=== PATIENT | male | born 1950 | race Caucasian/White ===

== ENCOUNTER 2018-06-29 15:34 | Observation (INO) ==
[2018-06-29 15:46] LABS: Hematocrit 47.5 % (37.5-50.1); Hemoglobin 14.1 g/dL (12.9-16.9); Mean Corpuscular HGB Conc 29.7 g/dL (31.6-35.5); Mean Corpuscular Hemoglobin 21.7 pg (28.0-33.3); Mean Corpuscular Volume 73.2 fL (83.0-100.0); Mean Platelet Volume 8.4 fL (9.4-12.4); Platelet Count 322 K/mcL (140-400); Red Blood Count 6.49 M/mcL (4.19-5.50); Red Cell Distribution Width 20.8 % (11.5-14.5)
[2018-06-29 15:53] LABS: INR 1.1; Prothrombin Time 12.6 Seconds (9.4-12.1)
[2018-06-29 16:01] LABS: BUN/Creatinine Ratio 22 (6-26); Blood Urea Nitrogen 28 mg/dL (8-23); Calcium 8.9 mg/dL (8.6-10.3); Carbon Dioxide 34 mEq/L (23-29); Chloride 96 mEq/L (98-107); Glucose 253 mg/dL (70-105); Osmolality,Calculated 294 (280-300); Potassium 3.2 mEq/L (3.5-5.1); Sodium 135 mEq/L (136-145); eGFR For Non-African Americans 58 (> 60)
[2018-06-29 16:08] LABS: Troponin I < 0.03 ng/mL (< 0.04)
--- NOTE | 2018-06-29 16:11 | Emergency Department Note ---
Disposition Clinical Impression: Cerebrovascular accident Qualifiers: CVA mechanism: unspecified Qualified Code(s): I63.9 - Cerebral infarction, unspecified Disposition: Admitted As Inpatient Condition: Fair Forms: ED Satisfaction Letter Time of Disposition: 16:48 Neuro HPI - General Chief Complaint: ED Neuro Symptoms/Deficit Stated Complaint: stroke Time Seen by Provider: 06/29/18 15:35 Source: patient Limitations: no limitations Nursing Notes Reviewed: Yes Vital Signs Reviewed: Yes - History of Present Illness HPI Narrative: Patient is a 67-year-old male presenting with AMS. Patient with history of COPD, CAD, hypertension, hyperlipidemia, fibromyalgia, diabetes and a recent diagnosis 1 week ago of [place] palsy, on the right. Patient states that approximate one week ago he began to have right sided facial droop, he was carlee gnosed with Urias's palsy. He was placed on steroids for one week and just finish this course. Patient states however last night he began to have progressive symptoms with increased right-sided facial droop with slurred speech. Last known well is sometime last night. Patient states that he also h as numbness and tingling throughout the rest of his body. Patient denies any chest pain, shortness of breath, recent fevers or chills no abdominal pain, nausea or vomiting. - Related Data Home Medications: Home Medications Medication Instructions Recorded Confirmed Paroxetine HCl [Paxil] 40 mg PO DAILY 03/11/18 03/11/18 Previous Rx's Medication Instructions Recorded Furosemide [Lasix] 20 mg PO DAILY #5 tablet 10/01/16 Allergies/Adverse Reactions: Allergies Allergy/AdvReac Type Severity Reaction Status Date / Time Penicillins [PCN] Allergy See Verified 03/11/18 15:25 Comments simvastatin AdvReac Muscle Pain Verified 03/11/18 15:25 All systems ED: reviewed and negative except as stated. Review of Systems: As Per HPI Constitutional: Reports: weakness. Denies: fever, chills, weight change Eyes: Denies: vision change ENT ED: Denies: ear pain, throat pain, dental pain, hearing loss, epistaxis, congestion, dysphagia Cardiovascular: Denies: chest pain, palpitations, edema Respiratory: Denies: cough, dyspnea, wheezes, sputum production Gastrointestinal: Denies: abdominal pain, nausea, vomiting Genitourinary: Denies: urgency, dysuria, frequency Musculoskeletal: Denies: back pain Integumentary: Denies: rash Neurological: Reports: weakness, numbness, confusion. Denies: headache Psychiatric: Denies: anxiety Endocrine: Denies: fatigue Hematological/Lymphatic: Denies: easy bleeding Past Medical History - Past Medical History Attestation: Yes The following information was validated with the patient. Source: patient Medical history: Reports: COPD, DVT, diabetes, fibromyalgia, hyperlipidemia, hypertension, migraine, myocardial infarction, pulmonary embolus Psychiatric history: Reports: anxiety, depression - Social History Smoking Status: Former smoker Smokeless Tobacco Status: No Alcohol use: Reports: rarely Drug use: Reports: none Physical Exam - General Limitations: no limitations General appearance: in no apparent distress - Head Head exam: atraumatic, normocephalic, normal inspection - Eye Eye exam: Present: normal appearance, PERRL, EOMI - ENT ENT exam: normal exam, mucous membranes moist - Neck Neck exam: Present: normal inspection, full ROM, trachea midline - Chest Chest inspection: Present: normal inspection, symmetric chest wall rise - Respiratory Respiratory exam: Present: normal lung sounds bilaterally - Cardiovascular Cardiovascular exam: Present: regular rate, normal rhythm, normal heart sounds - Abdominal Exam Abdominal exam: Present: soft, Non-Tender. Absent: tenderness, distention, guar ding, rebound, rigidity - Extremities Exam Extremities exam: Present: normal inspection, full ROM. Absent: tenderness, pedal edema - Back Exam Back exam: Present: normal inspection, full ROM. Absent: tenderness - Neurological Exam Neurological exam: Present: alert, oriented X3 - Expanded Neurological Exam Patient oriented to: Present: person, place, time Speech: Present: fluid speech Cranial nerves: EOM function (II, III, IV, ): Normal, facial sensation (V): Normal, facial palsy (VII): Abnormal Right, spinal accessory function (XI): Normal, tongue deviation (XII): Normal Cerebellar function: finger to nose: Normal, heel to tavera: Normal Motor strength - LUE: 5/5 Motor strength - RUE: 5/5 Motor strength - LLE: 5/5 Motor strength - RLE: 5/5 Upper motor neuron exam: camron neglect: Absent bilaterally, pronator drift: Absent bilaterally Sensory exam upper extremity: light touch: Normal Sensory exam lower extremity: light touch: Normal Coma Scale Eye Opening: Spontaneous Coma Scale Motor Response: Obeys Commands Coma Scale Verbal Response: Confused Coma Scale Total: 14 - Psychiatric Psychiatric exam: Present: normal affect, normal mood - Skin Skin exam: Present: warm, dry, intact, normal color. Absent: rash Course - Reevaluation(s) Reevaluation #1: On arrival 1540, patient had obvious right-sided facial droop and slurring of speech, stroke alert was called. At 1607, I was in the room while [facility] neurology was assessing the patient at bedside, , states that this appears to be Urias's palsy, she does note that it would be beneficial for the patient to have an MRI for further assessment of the auditory canal. At 1608, stroke alert was canceled. Vital Signs Temperature 99.2 F 06/29/18 15:40 Pulse Rate 89 06/29/18 15:40 Respiratory Rate 16 06/29/18 15:40 Blood Pressure 155/108 06/29/18 15:40 O2 Sat by Pulse Oximetry 97 06/29/18 15:40 Temperature 99.2 F 06/29/18 15:40 Pulse Rate 85 06/29/18 15:55 Respiratory Rate 16 06/29/18 15:55 Blood Pressure 130/74 06/29/18 15:55 O2 Sat by Pulse Oximetry 96 06/29/18 15:55 Oxygen Delivery Oxygen Delivery Room Air Neuro Symptoms/Deficit - MDM Narrative Medical decision making narrative: Patient is a 67-year-old male with concern for neuro deficits. Patient recently diagnosed with Urias's palsy of the right side of his face. On examination, obvious right-sided facial droop and upper right-sided facial changes, otherwise unremarkable. GCS of 14, NIH of 5. I did speak with [facility] at 1607, feels as though this is most likely progression of Urias's palsy, despite prednisone therapy. Recommended the patient be admitted with neurology consult, for further MRI testing as well as closer neurological testing for possible GBS. CT of the head shows no intracranial changes, slight leukocytosis, in setting of steroids appears appropriate, otherwise unremarkable. Patient was started on maintenance fluids. Patient will be admitted at this time. Patient remained stable in the ER, he is agreeable to admission. - Medical Records Medical records reviewed: Yes I reviewed the patient's medical records. - Lab Data Lab results reviewed: Yes I reviewed the patient's lab results. Result diagrams: 06/29/18 15:37 06/29/18 15:37 Lab Results 06/29/18 06/29/18 06/29/18 Range/Units 15:37 15:37 15:37 WBC 15.0 H (4.3-11.1) K/mcL RBC 6.49 H (4.19-5.50) M/mcL Hgb 14.1 (12.9-16.9) g/dL Hct 47.5 (37.5-50.1) % MCV 73.2 L (83.0-100.0) fL MCH 21.7 L (28.0-33.3) pg MCHC 29.7 L (31.6-35.5) g/dL RDW 20.8 H (11.5-14.5) % Plt Count 322 (140-400) K/mcL MPV 8.4 L (9.4-12.4) fL PT 12.6 H (9.4-12.1) Seconds INR 1.1 APTT 26.0 (26.0-36.0) Seconds Sodium 135 L (136-145) mEq/L Potassium 3.2 L (3.5-5.1) mEq/L Chloride 96 L (98-107) mEq/L Carbon Dioxide 34 H (23-29) mEq/L BUN 28 H (8-23) mg/dL Creatinine 1.25 (0.70-1.30) mg/dL Est GFR ( Amer) > 60 (> 60) Est GFR (Non-Af Amer) 58 L (> 60) BUN/Creatinine Ratio 22 (6-26) Glucose 253 H (70-105) mg/dL Calculated Osmolality 294 (280-300) Calcium 8.9 (8.6-10.3) mg/dL Troponin I < 0.03 (< 0.04) ng/mL - Radiology Data Radiology results reviewed: Yes I reviewed the patient's radiology results. Head CT 06/29/18 15:35 IMPRESSION: No acute intracranial abnormality. Findings were discussed with Dr. Jha on 06/29/2018 at 4:02 p.m. D/ / 06/29/2018 16:06:56 Annie Herrera MD / [facility] Interpreting Provider: Annie Herrera MD - EKG Data EKG attestation: Yes I reviewed and interpreted this EKG. EKG results narrative: EKG performed at 1549 with a ventricular rate of 89, regular rhythm, borderline left axis, no ST segment elevation, depression, does appear to have left atrial enlargement. NIH Stroke Scale - Level of Consciousness LOC: Drowsy, but arousable - LOC Questions LOC Questions: Answers both correctly - LOC Commands LOC Commands: Performs both correctly - Best Gaze Best Gaze: Normal - Visual Visual: No visual loss - Facial Palsy Facial Palsy: Complete absence of movement in upper and lower face - Motor Arms Motor Arm-Left: No drift for 10 seconds Motor Arm-Right: No drift for 10 seconds - Motor Legs Motor Leg-Left: No drift for 5 seconds Motor Leg-Right: No drift for 5 seconds - Limb Ataxia Limb Ataxia: Absent of affected limb too weak to perform exam - Sensory Sensory: Normal - Best Language Best Language: No aphasia - Dysarthria Dysarthria: Mild, slurs some words - Extinction and Inattention Extinction and Inattention: Normal - NIHSS Total Score NIHSS Total Score: 5 TPA Checklist - LKW: 3-4.5 hrs Add. Warnings/Precautions Patient/family understanding: The patient/family members have been counseled and understood the risk, benefit, and alternatives of treatment. Jerel.Bria - [place] Situation: Demographics, MOA Background: Presenting Complaint, Relevant PMH, Meds, & Allergies Assessment: Vital Signs, Course and respsone to treatment, Exam Concerns, Patient/Family Expectation, Pertinant Lab Results, Outstanding Labs Recommendation: Barrier(s) to disposition, Recommendation based on pending studies, treatments, or consults S.B.AMartin Report Given to: Dr. Pierre Hannah Repor Time: 16:50 (accepted)
--- NOTE | 2018-06-29 16:25 | Emergency Department Note ---
Disposition Clinical Impression: Cerebrovascular accident Qualifiers: CVA mechanism: unspecified Qualified Code(s): I63.9 - Cerebral infarction, unspecified Disposition: Admitted As Inpatient Referrals: NONE,PCP [Primary Care Provider] - Forms: ED Satisfaction Letter General Adult HPI - General Chief complaint: ED Neuro Symptoms/Deficit Stated complaint: stroke Time Seen by Provider: 06/29/18 15:35 Source: patient Limitations: no limitations Nursing Notes Reviewed: Yes Vital Signs Reviewed: Yes - History of Present Illness HPI Narrative: Attestation note: Patient was seen with the emergency medicine resident/nurse practitioner/physician assistant auditor/transitional resident/medical student: Dr. Clary Mckeon I have personally performed a face to face evaluation on this patient. I have reviewed and agree with history and physical examination patient management and disposition. Briefly the salient points of the case are as follows: 67-year-old male History of CVA briefly diagnosed with Urias's palsy comes in with facial hemiparesis on the left dysarthria and some cognitive dysfunction. NIH of 5 last known well was yesterday stroke alert was called patient went head CT noncontrast read by radiology as no acute process stroke alert robot from the neurologist at the [facility] evaluated the patient and stated that TPA was not an option that we should do MR at Christmas and admit with neurologic consultation. Patient is agreeable to this. Provided 45 minutes critical care service this patient. Patient is being admitted for TIA versus CVA and pre- existing bells palsy. Pain Scale: 0 - Related Data Home Medications Medication Instructions Recorded Confirmed Paroxetine HCl [Paxil] 40 mg PO DAILY 03/11/18 03/11/18 Previous Rx's Medication Instructions Recorded Furosemide [Lasix] 20 mg PO DAILY #5 tablet 10/01/16 Allergies Allergy/AdvReac Type Severity Reaction Status Date / Time Penicillins [PCN] Allergy See Verified 03/11/18 15:25 Comments simvastatin AdvReac Muscle Pain Verified 03/11/18 15:25 Past Medical History - Past Medical History Medical history: Reports: COPD, DVT, diabetes, fibromyalgia, hyperlipidemia, hypertension, migraine, myocardial infarction, pulmonary embolus Psychiatric history: Reports: anxiety, depression - Social History Smoking Status: Former smoker Smokeless Tobacco Status: No Alcohol use: Reports: rarely Drug use: Reports: none Physical Exam - General Limitations: no limitations General appearance: in no apparent distress Course Vital Signs Temperature 99.2 F 02/07/19 15:40 Pulse Rate 89 06/29/18 15:40 Respiratory Rate 16 06/29/18 15:40 Blood Pressure 155/108 06/29/18 15:40 O2 Sat by Pulse Oximetry 97 06/29/18 15:40 Temperature 99.2 F 06/29/18 15:40 Pulse Rate 85 06/29/18 15:55 Respiratory Rate 16 06/29/18 15:55 Blood Pressure 130/74 06/29/18 15:55 O2 Sat by Pulse Oximetry 96 06/29/18 15:55 Oxygen Delivery Oxygen Delivery Room Air Medical Decision Making - Lab Data Result diagrams: 06/29/18 15:37 06/29/18 15:37 Lab Results 06/29/18 06/29/18 06/29/18 Range/Units 15:37 15:37 15:37 WBC 15.0 H (4.3-11.1) K/mcL RBC 6.49 H (4.19-5.50) M/mcL Hgb 14.1 (12.9-16.9) g/dL Hct 47.5 (37.5-50.1) % MCV 73.2 L (83.0-100.0) fL MCH 21.7 L (28.0-33.3) pg MCHC 29.7 L (31.6-35.5) g/dL RDW 20.8 H (11.5-14.5) % Plt Count 322 (140-400) K/mcL MPV 8.4 L (9.4-12.4) fL PT 12.6 H (9.4-12.1) Seconds INR 1.1 APTT 26.0 (26.0-36.0) Seconds Sodium 135 L (136-145) mEq/L Potassium 3.2 L (3.5-5.1) mEq/L Chloride 96 L (98-107) mEq/L Carbon Dioxide 34 H (23-29) mEq/L BUN 28 H (8-23) mg/dL Creatinine 1.25 (0.70-1.30) mg/dL Est GFR ( Amer) > 60 (> 60) Est GFR (Non-Af Amer) 58 L (> 60) BUN/Creatinine Ratio 22 (6-26) Glucose 253 H (70-105) mg/dL Calculated Osmolality 294 (280-300) Calcium 8.9 (8.6-10.3) mg/dL Troponin I < 0.03 (< 0.04) ng/mL
[2018-06-29] MEDS ORDERED: 0.9 % Sodium Chloride 1,000 ML IVC SCH ×2 (16:45→17:45)
[2018-06-29] MEDS ORDERED: traMADol 50 MG TABLET PO PRN (17:05)
[2018-06-29] MEDS ORDERED: Naloxone 0.4 MG/ML INJ IVP PRN (17:05)
[2018-06-29] MEDS ORDERED: D5% in Water 1,000 ML IVC PRN (17:08)
[2018-06-29] MEDS ORDERED: Dextrose Gel 15 GM/37.5 ML TUBE PO PRN ×2 (17:08)
[2018-06-29] MEDS ORDERED: *HR* Dextrose 50 % in Water (Syg) 50 ML SYRINGE IVP PRN (17:08)
[2018-06-29] MEDS ORDERED: Ipratropium/Albuterol Neb 3 ML IH PRN (17:09)
--- NOTE | 2018-06-29 17:48 | Internal Med History&Physical ---
Date of Encounter: 06/29/18 Time of Encounter: 17:40 Internal Medicine - H&P: HPI Chief complaint: worsening left sided weakness, droop. generalized weakness Admitted From: Home Plans for Post Hospital Care: Home History of present illness: Mr. Plascencia is a 67 year old male PMH of DM not on any medication, HTN, HLD, an d a recent diagnosis of urias's palsy. Patient reported that about a week ago he developed left facial drooping, and was unable to close his eye for which he decided to come to the ED and was diagnosed with Urias's palsy and told to follow up with his PCP which he did on Tuesday last week and was started on Prednisone and an antibiotic. He reports that his symptoms somewhat improved for a couple of days, but yesterday he started experiencing worsening on the right facial droop and weakness, plus was not able to closed the right eye, associated with generalized weakness, but he reports his right leg feels weaker. He also reports his speech being more slurred. Denies headache, nausea, vomiting. He reports subjective fever/chills. Past Med Surg Social Fam HX - Past Medical History Medical history: COPD, DVT, diabetes, fibromyalgia, hyperlipidemia, hypertension, migraine, myocardial infarction, pulmonary embolus Additional medical history: bowel obstruction Psychiatric history: anxiety, depression - Past Surgical History Additional surgical history: exploratory lap. eye surg. bowel repair from ruptured bowel - Social History Smoking Status: Former smoker Smokeless Tobacco Status: No Alcohol use: rarely Drug use: none Internal Medicine - H&P: Meds Furosemide [Lasix] 20 mg PO DAILY #5 tablet 10/01/16 [Rx] Paroxetine HCl [Paxil] 40 mg PO DAILY 03/11/18 [History] Allergy/AdvReac Type Severity Reaction Status Date / Time Penicillins [PCN] Allergy See Verified 03/11/18 15:25 Comments simvastatin AdvReac Muscle Pain Verified 03/11/18 15:25 All Systems PM: A 10-system review of systems was performed and is negative for pertinent findings except as documented above in the HPI. - Constitutional Constitutional: chills, fever(s) (subjective ), weakness - EENT Eyes: blurry vision (right eye), discharge (right eye), irritation (right eye), no decreased night vision, no pain, no photophobia - Cardiovascular Cardiovascular ROS IM: no chest pain, no dyspnea, no dyspnea on exertion, no irregular heart rhythm, no orthopnea, no palpitations, no paroxysmal nocturnal dyspnea - Respiratory Respiratory: no cough, no dyspnea, no wheezing, no snoring - Gastrointestinal Gastrointestinal: no abdominal pain, no loose stools, no nausea, no vomiting - Genitourinary Genitourinary ROS male: no nocturia, no urinary frequency - Musculoskeletal Musculoskeletal ROS IM: no muscle weakness - Integumentary Integumentary IM: no sores - Neurological Neurological ROS: focal weakness (right leg. ), tingling (right side of his face. ), no confusion, no headache(s), no lack of coordination - Psychiatric Psychiatric: no anxiety, no irritability - Endocrine Endocrine IM: no cold intolerance - Hematologic/Lymphatic Hematologic/Lymphatic: no lymphadenopathy - Allergic/Immunologic Allergic/Immunologic: no GI upset with certain foods - Constitutional Vitals: Temp Pulse Resp BP Pulse Ox 99.2 F 85 16 130/74 96 06/29/18 15:40 06/29/18 15:55 06/29/18 15:55 06/29/18 15:55 06/29/18 15:55 Exam: General: Patient is alert, oriented x4. In mild distress due to slurred speech and left facial droop Head: atraumatic, normocephalic, Eye: PERRL, no scleral icterus, no conjunctival injection, teary right eye with small amount of purulent discharge. Neck: normal inspection, trachea midline, full ROM, no carotid bruits Respiratory: Good respiratory effort. Clear to auscultation bilaterally, no wheezing rales or crackles. Cardiovascular: RRR, normal s1 and s2 No clicks, rubs, gallops, or murmors. Abdomen: Bowel sounds present normoactive x-4 quadrants. Abdomen is soft, nondistended. No guarding or rebound. Obese Musculoskeletal: strength is 3/5 in the right lower extr, strength in the left lower and b/l upper extremities is 5/5. Neuro: No meningeal signs. Sensation light touch intact. left facial droop. u nable to close the right eye. Psych: Patient's affect is normal Internal Med - H&P Results - Labs CBC & Chem 7: 06/29/18 15:37 06/29/18 15:37 Labs: Short CBC 06/29/18 Range/Units 15:37 WBC 15.0 H (4.3-11.1) K/mcL Hgb 14.1 (12.9-16.9) g/dL Hct 47.5 (37.5-50.1) % Plt Count 322 (140-400) K/mcL BMP 06/29/18 15:37 Sodium 135 L Potassium 3.2 L Chloride 96 L Carbon Dioxide 34 H BUN 28 H Creatinine 1.25 Glucose 253 H Calcium 8.9 Cardiac Enzymes 06/29/18 Range/Units 15:37 Troponin I < 0.03 (< 0.04) ng/mL - Impressions ITS Impressions Head CT 06/29/18 15:35 IMPRESSION: No acute intracranial abnormality. Findings were discussed with Dr. Jha on 06/29/2018 at 4:02 p.m. D/ / 06/29/2018 16:06:56 [facility] Inter[facility] Provider: Annie Herrera MD - Diagnostic Studies CT scan - head Status: image reviewed by me (No acute abnormalities ) - Assessment and plan (1) Facial hemiparesis Current Visit: Yes Status: Acute Assessment and plan: Associated with right sided leg weakness. cannot r/o CVA. Plan MRI of the brain TTE Neurology consulted Started on Aspirin 81mg/PO daily Lipid panel A1C NPO until bedside swallow evaluation PT/OT (2) HLD (hyperlipidemia) Current Visit: Yes Status: Chronic Assessment and plan: Patient not on any medication as he states he is allergic to statins. will start the patient on fenofibrate 162mg/PO daily. Qualifiers: Hyperlipidemia type: unspecified Qualified Code(s): E78.5 - Hyperlipidemia, unspecified (3) HTN (hypertension) Current Visit: Yes Status: Chronic Assessment and plan: Patient on Furosemide 20mg/PO daily. will hold medication as patient looks mildly dehydrated. Qualifiers: Hypertension type: unspecified Qualified Code(s): I10 - Essential (primary) hypertension (4) Diabetes Current Visit: Yes Status: Chronic Assessment and plan: Patient reports not ever been told about having DM issues. last A1C 7.1 on 08/07. carb controlled diet after bedside swallow eval. started on levemir 10 units HS, plus lispro medium dose sliding scale ac. Qualifiers: Diabetes mellitus type: type 2 Diabetes mellitus complication status: with unspecified complications Qualified Code(s): E11.8 - Type 2 diabetes mellitus with unspecified complications (5) Urias's palsy Current Visit: Yes Status: Acute Assessment and plan: Patient recently diagnosed with urias's palsy. will continue prednisone 40mg/PO daily. Neurology has been consulted. Will discuss with neurology wether a trail of acyclovir along with the prednisone would be of any benefit for this patient. (6) DVT prophylaxis Current Visit: Yes Status: Acute Assessment and plan: started on heparin subQ (7) Leukocytosis Current Visit: Yes Status: Acute Assessment and plan: most likely reactive as patient has been on prednisone. will monitor. no signs of active infection. Qualifiers: Leukocytosis type: unspecified Qualified Code(s): D72.829 - Elevated white blood cell count, unspecified (8) COPD (chronic obstructive pulmonary disease) Current Visit: Yes Status: Chronic Assessment and plan: not acutely exacerbated. patient started on bronchodilators Q4RT PRN. Qualifiers: COPD type: emphysema Emphysema type: unspecified Qualified Code(s): J43.9 - Emphysema, unspecified - Time Spent With Patient Total time spent is greater than 50% in coordination of care (as documented) at patient's floor/unit and/or counseling patient: Greater than 35 minutes (50)
[2018-06-29 19:33] LABS: Chol/HDL Ratio 3.6 (0-4.9); Cholesterol 162 mg/dL (< 200); HDL Cholesterol 45 mg/dL (40-59); LDL Cholesterol,Calculated 46 mg/dL (0-99); Triglycerides 353 mg/dL (< 150)
[2018-06-29] MEDS: Aspirin Enteric Coated 81 MG Tablet PO SCH (20:47)
[2018-06-29] MEDS: predniSONE 20 MG TABLET PO SCH (20:48)
[2018-06-29] MEDS: *HR* Heparin 5,000 UNIT/ML VIAL SQ SCH (20:48)
[2018-06-29] MEDS ORDERED: Insulin DETEMIR 100 UNIT/ML X5UNITS SQ SCH (21:00)
[2018-06-29] MEDS: Artificial Tears SOLN 15 ML BOTTLE BOTH EYES PRN (23:16)
[2018-06-30 03:59] LABS: Hematocrit 45.7 % (37.5-50.1); Hemoglobin 13.5 g/dL (12.9-16.9); Mean Corpuscular HGB Conc 29.5 g/dL (31.6-35.5); Mean Corpuscular Hemoglobin 21.7 pg (28.0-33.3); Mean Corpuscular Volume 73.4 fL (83.0-100.0); Mean Platelet Volume 8.4 fL (9.4-12.4); Platelet Count 298 K/mcL (140-400); Red Blood Count 6.23 M/mcL (4.19-5.50); Red Cell Distribution Width 20.5 % (11.5-14.5)
[2018-06-30 04:22] LABS: BUN/Creatinine Ratio 25 (6-26); Blood Urea Nitrogen 26 mg/dL (8-23); Calcium 8.7 mg/dL (8.6-10.3); Carbon Dioxide 30 mEq/L (23-29); Chloride 99 mEq/L (98-107); Glucose 221 mg/dL (70-105); Osmolality,Calculated 296 (280-300); Potassium 4.1 mEq/L (3.5-5.1); Sodium 137 mEq/L (136-145); eGFR For Non-African Americans > 60 (> 60)
[2018-06-30] MEDS: *HR* Heparin 5,000 UNIT/ML VIAL SQ SCH ×3 (06:09→21:29)
[2018-06-30] MEDS: Insulin LISPRO 300 UNITS/3 ML VIAL SQ SCH ×5 (07:57→17:51)
[2018-06-30] MEDS ORDERED: Nitroglycerin 0.4 MG TAB.SUBL SL ONE (08:17)
[2018-06-30] MEDS: Nitroglycerin 0.4 MG TAB.SUBL SL PRN ×2 (08:25→08:26)
[2018-06-30] MEDS ORDERED: Isovue-370 500 ML BOTTLE IVP ONE (08:26)
[2018-06-30] MEDS ORDERED: *HR* Morphine 2 MG/ML SYRINGE IVP ONE (08:27)
[2018-06-30] MEDS ORDERED: Furosemide 20 MG TABLET PO SCH (09:00)
[2018-06-30] MEDS: predniSONE 20 MG TABLET PO SCH (09:20)
[2018-06-30] MEDS: Fenofibrate 54 MG TABLET PO SCH (09:20)
[2018-06-30] MEDS: Aspirin Enteric Coated 81 MG Tablet PO SCH (09:20)
[2018-06-30 10:02] LABS: Estimated Average Glucose 183 mg/dl
--- NOTE | 2018-06-30 10:02 | Internal Med Progress Note ---
Hospitalist Progress Note - Encounter Date of Encounter: 06/30/18 Time of Encounter: 09:59 - Subjective Interval History: I have seen and evaluated this patient at bedside. Rapid response was called as patient was complaining of severe chest pain, alleviated by morphine IV. He reports having a pain pump due to chronic back pain which needed revision. Denies shortness of breath, lightheadedness or dizziness. - Exam Vitals: Temp Pulse Resp BP Pulse Ox 98.6 F 113 18 156/82 100 06/30/18 07:39 06/30/18 08:36 06/30/18 07:39 06/30/18 08:36 06/30/18 08:36 Exam: Vitals: Reviewed. General: Alert and oriented 4. in mild distress due to chest pain. Skin: Normal color, no rash, no lesions. HEENT: EOM, pupils equal, round and reactive. Cardiovascular: RRR, normal S1 & S2, no rubs, murmurs or gallops. No JVD. Pulse regular. Lungs: Clear breath sounds auscultation bilaterally, no wheezes or crackles. Abdomen: Obese, soft, non-tender, no rigidity. Extremities: strength in the lower extr 5/5 b/l. Neurological: improved facial droop, able to close right eye. Rest of the physical exam is non contributory - Assessment and Plan (1) Urias's palsy Current Visit: Yes Status: Acute Assessment and Plan: facial drooping improving. patient able to close the eye b/l now. MRI of the brain: negative for CVA. Continue prednisone 40 mg by mouth daily. Neurology consulted recommendation appreciated. Artificial tears. (2) HLD (hyperlipidemia) Current Visit: Yes Status: Chronic Assessment and Plan: Continue fenofibrate 162 mg by mouth daily. (3) HTN (hypertension) Current Visit: Yes Status: Chronic Assessment and Plan: Blood pressure is controlled. We will resume furosemide home dose. (4) Diabetes Current Visit: Yes Status: Chronic Assessment and Plan: Blood sugars suboptimally controlled. Possible secondary to steroids. Increase Levemir to 10 units twice a day. Plus lispro 4 units before meals plus medium dose sliding scale before meals. (5) Leukocytosis Current Visit: Yes Status: Acute Assessment and Plan: Most likely reactive secondary to steroids. We will continue to monitor (6) COPD (chronic obstructive pulmonary disease) Current Visit: Yes Status: Chronic Assessment and Plan: Not an acute exacerbation. Chest is clear to auscultation. Continue bronch odilators when necessary. (7) Chest pain Current Visit: Yes Status: Acute Assessment and Plan: Possible muscular chest pain. No EKG changes. CTA of the chest ordered to rule out PE vs aortic abnormalities serial trops Patient has a pain pump. Nitroglycerin 0.4 mg sublingual every 5 minutes 3 when necessary for chest pain. DVT Prophylaxis: Patient is on heparin 5000 units subcutaneous every 8 hours. - Summary of Assessment and Plan Summary of Assessment and Plan: Patient to remain in the hospital due to chest pain, will trend troponins. Potential discharge tomorrow morning. - Time Spent with Patient Total time spent is greater than 50% in coordination of care (as documented) at patient's floor/unit and/or counseling patient: Greater than 35 minutes (45) Plan of Care Discussed with: patient (and the nurse.) Internal Medicine: Result - Labs CBC & Chem 7: 06/30/18 03:20 06/30/18 03:20 Labs: Short CBC 06/29/18 06/30/18 Range/Units 15:37 03:20 WBC 15.0 H 13.7 H (4.3-11.1) K/mcL Hgb 14.1 13.5 (12.9-16.9) g/dL Hct 47.5 45.7 (37.5-50.1) % Plt Count 322 298 (140-400) K/mcL BMP 06/29/18 06/30/18 15:37 03:20 Sodium 135 L 137 Potassium 3.2 L 4.1 D Chloride 96 L 99 Carbon Dioxide 34 H 30 H BUN 28 H 26 H Creatinine 1.25 1.05 Glucose 253 H 221 H Calcium 8.9 8.7 Cardiac Enzymes 06/29/18 06/30/18 Range/Units 15:37 08:32 Troponin I < 0.03 < 0.03 (< 0.04) ng/mL - ABG Interpretation ABG results: PT/INR, D-dimer PT 12.6 Seconds (9.4-12.1) H 06/29/18 15:37 - Impressions Impressions Head CT 06/29/18 15:35 IMPRESSION: No acute intracranial abnormality. Findings were discussed with Dr. Jha on 06/29/2018 at 4:02 p.m. D/ / 06/29/2018 16:06:56 Annie Herrera MD / geoff Interpreting Provider: Annie Herrera MD Brain MRI 06/29/18 17:11 IMPRESSION: No acute infarct. D/ / Sung Bustos MD / Sung Bustos MD Interpreting Provider: Sung Bustos MD Echocardiogram 06/29/18 17:39 Impressions: Technically sub-optimal due to poor echocardiographic windows. Not all LV segments were well visualized, but overall LVEF appears normal. LVEF 60%. Grossly normal LV chamber size and wall thickness. Atypical septal motion consistent with bundle branch block. Mild left ventricular diastolic dysfunction. Normal right ventricular structure and function. Unable to estimate RVSP due to lack of TR jet. No significant valvular dysfunction. No evidence of a PFO with agitated saline contrast. Findings: Study Quality * Technically sub-optimal due to poor echocardiographic windows. ECG Findings * Sinus rhythm with BBB. Left Ventricle * Not all LV segments were well visualized, but overall LVEF appears normal. LVEF 60%. * Grossly normal LV chamber size and wall thickness. * Atypical septal motion consistent with bundle branch block. * Mild left ventricular diastolic dysfunction. Right Ventricle * Normal right ventricular structure and function. Left Atrium * Moderately dilated left atrium. Right Atrium * Normal right atrial size. Aortic Valve * Aortic valve not well visualized. * No aortic regurgitation. * No aortic stenosis. Mitral Valve * Normal mitral valve structure and function. * No mitral regurgitation. * No mitral stenosis. Tricuspid Valve * Normal tricuspid valve structure and function. * No tricuspid regurgitation. * Unable to estimate RVSP due to lack of TR jet. Pulmonic Valve * Pulmonic valve not well visualized. Aorta * Normally sized aortic root. Pericardium * The pericardium appears normal. IVC * The IVC is not well evaluated. Pulmonary Artery * Pulmonary artery not well visualized. Interatrial Septum * No evidence of a PFO with agitated saline contrast. Chest CTA 06/30/18 08:26 IMPRESSION: No evidence of pulmonary embolism or acute pulmonary abnormality. D/ / Don Penaloza / Don Penaloza Interpreting Provider: Don Penaloza Consult Discharge Plan - Plan Referrals: NONE,PCP [Primary Care Provider] - (2) HLD (hyperlipidemia) Qualifiers: Hyperlipidemia type: unspecified Qualified Code(s): E78.5 - Hyperlipidemia, unspecified (3) HTN (hypertension) Qualifiers: Hypertension type: unspecified Qualified Code(s): I10 - Essential (primary) hypertension (4) Diabetes Qualifiers: Diabetes mellitus type: type 2 Diabetes mellitus complication status: with unspecified complications Qualified Code(s): E11.8 - Type 2 diabetes mellitus with unspecified complications (5) Leukocytosis Qualifiers: Leukocytosis type: unspecified Qualified Code(s): D72.829 - Elevated white blood cell count, unspecified (6) COPD (chronic obstructive pulmonary disease) Qualifiers: COPD type: emphysema Emphysema type: unspecified Qualified Code(s): J43.9 - Emphysema, unspecified (7) Chest pain Qualifiers: Chest pain type: unspecified Qualified Code(s): R07.9 - Chest pain, unspecified
--- NOTE | 2018-06-30 13:11 | Neurology - Consult Note ---
Addendum entered and electronically signed by Zhou Villasenor MD 06/30/18 16:03: Patient seen and examined in the presence of Dr. Hector Pandya and case discussed, imaging studies reviewed together. I agree with his history taking, physical examination, assessment and plan outlined below. In summary, this is a 67-year-old man with past medical history significant for diabetes obesity, congestive heart failure, hypertension, obstructive sleep apnea who developed right facial droop and diffuse leg weakness and paresthesia. Patient initially developed right ear pain followed by right facial paralysis about a week ago and he was evaluated in the emergency room and was thought to have right facial paralysis and was started steroid therapy. Subsequently, the patient saw his [facility] physician who prescribed him antiviral medication. However, a few days after initiation of steroid therapy developed diffuse weakness in his legs, paresthesia involving his hands and fingers as well as some muscle pain involving his thighs bilaterally. Therefore the patient was admitted for critical access hospital evaluation. The leg weakness and paresthesia involving his hands and fingers quickly improved. The patient is on his last day of steroid and antiviral therapy. He experienced improvement in his right facial paralysis kocherized by ability to close his right eye however, the right lower face weakness is still present. He also lost his taste and still has slight post auricular pain on the right side which are part of Urias's palsy. Patient already on steroid and antiviral therapy and possible residual consequences from Urias's palsy is discussed with the patient. No further testing or intervention are available for such idiopathic Urias's palsy. The patient can be discharged home from neurology perspective. Proper eye care including the use of eyepatch and drops are discussed with the patient. 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 Patient states that his initial symptoms started 3 weeks ago as he was noted to accidentally bite his right inner cheek while eating. One week ago he was diagnosed with Urias's palsy in the emergency department. He was prescribed prednisone and valacyclovir by his PCPs office on June 22 2018. There are no lesions in or around the right ear to indicate Lia Blake syndrome, but the patient does complain of a cold sore that he had on his lip previously. Patient's last day of valacyclovir was to be today. He is continued on his prednisone taper, per [facility] records, patient is to be on 40 mg prednisone today, 30 mg tomorrow, 20 mg the day after, and then followed by a 10-day course of 10 mg prednisone a day. His valacyclovir may be stopped as today was supposed be patient's last day, and there is no benefit of restarting antiviral. Patient does note some improvement of his Urias's palsy syndrome as he states he initially could not close his right eye, and now he has some improvement as he does nearly close the right eye when instructed. Patient also presented to the hospital with generalized weakness worse in lower extremities, but that has improved as patient has 5 out of 5 strength throughout and was noted to be walking around the room without assistance. MRI was negative for acute CVA, however the patient does have stroke risk factors that have to be addressed, mainly his history of diabetes, hypertension, and hyperlipidemia. -Continue prednisone taper as described above -Patient does not require reinitiation of his valacyclovir -Patient has had some improvement of his Urias's palsy and suspect that he will continue to show progressive continued improvement of his symptoms -No CT or MRI evidence for acute bleed or infarct -Patient to benefit from continued antiplatelet treatment with aspirin daily -Patient has adverse reactions statins, agree with initiation of fibrate. As an outpatient may try a newer generation statin that he may be able to tolerate. -Hemoglobin A1c 8.0, recommend improved glycemic control -Recommend improved control of patient's hypertension as an outpatient as well History of Present Illness Chief complaint: facial droop, generalized weakness HPI: Mr. Plascencia is a 67 year old male who was recently diagnosed with Urias's palsy on 06/19/2018 with right-sided facial paralysis. He was started on valacyclovir and prednisone taper by his PCPs office on 06/22/2018. Patient states that his last day of his valacyclovir was to be today. He presented to the emergency department yesterday for worsening right-sided facial droop, and generalized weakness of both lower extremities. Head CT on admission was negative for bleed and follow-up MRI did not reveal any acute infarcts. Echocardiogram was suboptimal however LVEF is 60% and no evidence of a PFO was found. This morning patient states that his bilateral lower extremity weakness is improved, patient was noted to be walking around his room today without gait abnormality and did not require assistance. Patient does complain of pain located postauricularly on the right side. He does state that he has had a "cold sore "lesion on his inner lip but denies noticing any lesions in or around the right ear. He has a history of a surgery posterior to the left ear, but no trauma or surgery to the right. No history of strokes. He does have hypertension annd diabetes and his [facility] records indicate that the patient is on aspirin 81 mg daily, hydrochlorothiazide, Coreg, and amlodipine. He is not on a statin as he has adverse reactions to statins. He was started on fenofibrate in the hospital. While in the hospital patient's main chest pain that was 10 out of 10 and a rapid response was called. EKG negative for ischemic changes and CT injury and was negative for PE. Past Med Surg Social Fam HX - Past Medical History Medical history: COPD, DVT, diabetes, fibromyalgia, hyperlipidemia, hypertension, migraine, myocardial infarction, pulmonary embolus Additional medical history: bowel obstruction Psychiatric history: anxiety, depression - Past Surgical History Additional surgical history: exploratory lap. eye surg. bowel repair from ruptured bowel - Social History Smoking Status: Former smoker Smokeless Tobacco Status: No Alcohol use: rarely Drug use: none - Family History Father Adopted: [place]: Feng Plascencia Living Status: Age at : 64 Cause of : Heart Disease Hx Family Cardiac Disorders: Yes Hx Family Respiratory Disorders: Yes (smoker) Hx Family Cancer: No Hx Family GI Disorders: No Hx Family Genitourinary Disorders: No Hx Family Endocrine Disorder: No Hx Family Musculoskeletal Disorders: No Hx Family Neuromuscular Disorders: No Hx Family Neurologic Disorders: No Hx Family HEENT Disorders: No Hx Family Autoimmune Disorders: No Hx Family Reproductive Disorders: No Hx Family Psychosocial Disorders: No Hx Family Medical Disorders: No Medications and Allergies Paroxetine HCl [Paxil] 40 mg PO DAILY 03/11/18 [History] Celecoxib [Celebrex] 200 mg PO DAILY 06/30/18 [History] Allergy/AdvReac Type Severity Reaction Status Date / Time Penicillins [PCN] Allergy See Verified 03/11/18 15:25 Comments simvastatin AdvReac Muscle Pain Verified 03/11/18 15:25 All Systems: The remainder of the systems were reviewed and are negative - Constitutional Constitutional ROS IM: weakness - Nose, Mouth, Throat Nose, mouth and throat: abnormal hearing - Cardiovascular Cardiovascular ROS IM: chest pain - Respiratory Respiratory IM: no dyspnea - Gastrointestinal Gastrointestinal: no abdominal pain - Musculoskeletal Musculoskeletal ROS IM: no abnormal gait - Integumentary Integumentary IM: no lesions, no rash - Neurological Neurological ROS: abnormal hearing, no abnormal gait, no confusion, no dizziness - Psychiatric Psychiatric general PM: other (Increased stress recently) Physical Examination - Vital Signs Vital Signs: Initial Vital Signs Temp Pulse Resp BP Pulse Ox 99.2 F 89 16 155/108 97 06/29/18 15:40 06/29/18 15:40 06/29/18 15:40 06/29/18 15:40 06/29/18 15:40 - Exam Exam: Constitutional: Awake, alert and oriented 3, no acute distress HEENT: There is significant right-sided facial droop with decreased ability to close his right eye. The forehead is affected as well. Pupils are equal round and react to light bilaterally. extraoccular muscles intact without nystagmus. Subjective hearing difficulty in the right ear. Complaint of postauricular pain on the right. Tongue protrudes midline, oropharynx clear without lesions, no herpetic lesions noted. No vesicular lesions noted in around the ear. Neck: No JVD, trachea midline Chest: Symmetrical chest wall rise no tenderness to palpation Cardiovascular: Regular rate and rhythm no murmurs Respiratory: Clear to auscultation bilaterally Neurological: -General: Awake and alert, oriented 3. -Cranial nerves: There is cranial nerve VII palsy on the right side with complete right-sided facial paralysis which also affects the right forehead and also causing ectropion of the right eye. His extraocular muscles are intact and there is no nystagmus. Hearing is decreased in the right ear patient states that his nail. He also complains of postauricular right ear pain. Pupils equal and react to light bilaterally. Tongue protrudes midline. Normal SCM and trapezius muscle strength. -Upper extremities: Sensation intact, strength is 5 out of 5 bilaterally throughout both upper extremities. 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 No pronator drift. Biceps reflexes 1+ bilaterally. Normal finger to nose. -Lower extremities: Patient was observed to be ambulate around the room unassisted without gait imbalance or difficulty. His lower external strength is followed 5 bilaterally throughout. Patellar reflexes are 2+ bilaterally. Babinski negative. Results - Laboratory Findings CBC and BMP: 06/30/18 03:20 06/30/18 03:20 Abnormal lab findings: Abnormal lab results WBC 13.7 K/mcL (4.3-11.1) H 06/30/18 03:20 RBC 6.23 M/mcL (4.19-5.50) H 06/30/18 03:20 MCV 73.4 fL (83.0-100.0) L 06/30/18 03:20 MCH 21.7 pg (28.0-33.3) L 06/30/18 03:20 MCHC 29.5 g/dL (31.6-35.5) L 06/30/18 03:20 RDW 20.5 % (11.5-14.5) H 06/30/18 03:20 MPV 8.4 fL (9.4-12.4) L 06/30/18 03:20 PT 12.6 Seconds (9.4-12.1) H 06/29/18 15:37 Carbon Dioxide 30 mEq/L (23-29) H 06/30/18 03:20 BUN 26 mg/dL (8-23) H 06/30/18 03:20 Glucose 221 mg/dL (70-105) H 06/30/18 03:20 POC Glucose 106 mg/dL (70-99) H 06/29/18 20:42 Hemoglobin A1c 8.0 % (-5.6) H 06/30/18 03:20 Triglycerides 353 mg/dL (< 150) H 06/29/18 15:37 VLDL Cholesterol, Calc 71 mg/dL (< 31) H 06/29/18 15:37 Consult Discharge Plan - Plan Referrals: NONE,PCP [Primary Care Provider] -
[2018-06-30] MEDS: Artificial Tears SOLN 15 ML BOTTLE BOTH EYES PRN (19:52)
[2018-06-30] MEDS: Insulin DETEMIR 100 UNIT/ML X5UNITS SQ SCH (21:30)
[2018-07-01 04:03] LABS: Basophils % 0.1 %; Eosinophils % 0.5 %
[2018-07-01 04:04] LABS: Eosinophils # 0.1 K/mcL (0.0-0.6); Hemoglobin 13.5 g/dL (12.9-16.9); Immature Granulocytes % 0.5 % (0-4); Lymphocytes # 2.6 K/mcL (0.6-4.6); Mean Corpuscular HGB Conc 28.7 g/dL (31.6-35.5); Mean Corpuscular Hemoglobin 21.2 pg (28.0-33.3); Mean Corpuscular Volume 73.7 fL (83.0-100.0); Mean Platelet Volume 8.5 fL (9.4-12.4); Monocytes % 6.9 %; Neutrophils # 11.3 K/mcL (1.6-8.9); Platelet Count 348 K/mcL (140-400); Red Blood Count 6.38 M/mcL (4.19-5.50); Red Cell Distribution Width 20.3 % (11.5-14.5)
[2018-07-01 04:20] LABS: BUN/Creatinine Ratio 25 (6-26); Blood Urea Nitrogen 23 mg/dL (8-23); Calcium 8.9 mg/dL (8.6-10.3); Carbon Dioxide 33 mEq/L (23-29); Chloride 100 mEq/L (98-107); Glucose 130 mg/dL (70-105); Magnesium 2.2 mg/dL (1.6-2.6); Osmolality,Calculated 295 (280-300); Phosphorous 3.3 mg/dL (2.7-4.5); Potassium 3.4 mEq/L (3.5-5.1); Sodium 140 mEq/L (136-145); eGFR For Non-African Americans > 60 (> 60)
[2018-07-01 04:26] LABS: Anisocytosis 2+ (Not Present); Platelet Estimate Normal (Normal); Polychromasia 1+ (Not Present); Reactive Lymphocytes Present (Not Present)
[2018-07-01 04:27] LABS: Macrocytosis Present (Not Present); Microcytosis Present (Not Present)
[2018-07-01] MEDS: *HR* Heparin 5,000 UNIT/ML VIAL SQ SCH (05:33)
[2018-07-01] MEDS: Artificial Tears SOLN 15 ML BOTTLE BOTH EYES PRN ×2 (05:35→07:59)
[2018-07-01 06:52] VITALS: BP 120/79
[2018-07-01] MEDS: Fenofibrate 54 MG TABLET PO SCH (07:52)
[2018-07-01] MEDS: Aspirin Enteric Coated 81 MG Tablet PO SCH (07:53)
[2018-07-01] MEDS: Insulin LISPRO 300 UNITS/3 ML VIAL SQ SCH ×2 (07:54)
[2018-07-01] MEDS: Insulin DETEMIR 100 UNIT/ML X5UNITS SQ SCH (07:54)
[2018-07-01] MEDS: predniSONE 20 MG TABLET PO SCH (07:57)
[2018-07-01] MEDS ORDERED: Furosemide 20 MG TABLET PO SCH (09:00)
--- NOTE | 2018-07-01 09:11 | Discharge Summary ---
- NOTES TO OUTPATIENT PROVIDER Notes to Outpatient Provider: Follow-up with neurology within 1-2 weeks of hospital discharge if your symptoms persist. Date of Encounter: 07/01/18 Time of Encounter: 09:09 - Discharge Diagnosis (1) Urias's palsy Priority: Primary Status: Acute (2) HLD (hyperlipidemia) Priority: Secondary Status: Chronic Qualifiers: Hyperlipidemia type: unspecified Qualified Code(s): E78.5 - Hyperlipidemia, unspecified (3) HTN (hypertension) Priority: Secondary Status: Chronic Qualifiers: Hypertension type: unspecified Qualified Code(s): I10 - Essential (primary) hypertension (4) Diabetes Priority: Secondary Status: Chronic Qualifiers: Diabetes mellitus type: type 2 Diabetes mellitus complication status: with unspecified complications Qualified Code(s): E11.8 - Type 2 diabetes mellitus with unspecified complications (5) Leukocytosis Priority: Secondary Status: Acute Qualifiers: Leukocytosis type: unspecified Qualified Code(s): D72.829 - Elevated white blood cell count, unspecified (6) COPD (chronic obstructive pulmonary disease) Priority: Secondary Status: Chronic Qualifiers: COPD type: emphysema Emphysema type: unspecified Qualified Code(s): J43.9 - Emphysema, unspecified (7) Chest pain Priority: Secondary Status: Acute Qualifiers: Chest pain type: unspecified Qualified Code(s): R07.9 - Chest pain, unspecified Hospital course: Mr. Plsacencia is a 67 year old male PMH of DM not on any medication, HTN, HLD, and a recent diagnosis of urias's palsy. Patient presented to the hospital due to worsening right-sided facial droop, unable to close his right eye. He also reported lower extremity weakness and numbness. Which was worse on the right lower extremity. Patient admitted to the hospital to rule out CVA. An MRI of the brain: No acute infarct. Neurology consulted, symptoms believed to be due to Urias's palsy, recommended to complete treatment with steroids and antiviral medication and to follow up in the outpatient settings. During hospital day 2, patient had an event of significant chest pain. for which a CTA of the chest was done to r/o PE. CTA: unremarkable. Serial trops negative. Chest pain resolved with IV pain medications. Patient is hemodynamically stable to be discharged home. recommended to follow up with neurology. - Time Spent with Patient Total time spent providing and/or coordinating discharge services: Greater than 30 minutes (45) - Discharge Medications Prescriptions: Artificial Tears SOLN [Akwa Tears] 1 drop BOTH EYES QID PRN 30 Days #2 bottle PRN Reason: Dry Eye(S) Fenofibrate [Tricor] 162 mg PO DAILY 30 Days #30 tablet metFORMIN [Glucophage] 850 mg PO BIDWM 30 Days #60 tablet Home Medications: Paroxetine HCl [Paxil] 40 mg PO DAILY 03/11/18 [History] Amlodipine Besylate 5 mg PO DAILY 06/30/18 [History] Aspirin [Adult Aspirin] 81 mg PO DAILY 06/30/18 [History] Carvedilol [Coreg] 6.25 mg PO BID 06/30/18 [History] Celecoxib [Celebrex] 200 mg PO DAILY 06/30/18 [History] Cholecalciferol (Vitamin D3) [Vitamin D3] 1,000 unit PO DAILY 06/30/18 [History] Cyanocobalamin (Vitamin B-12) [Vitamin B12] 1,000 mcg PO DAILY 06/30/18 [History] Dextroamphetamine/Amphetamine [Adderall 10 mg Tablet] 10 mg PO 0900,1600 06/30/18 [History] Dextroamphetamine/Amphetamine [Dextroamp-Amphetamin 10 mg Tab] 20 mg PO 0500 06/30/18 [History] Morphine Sulfate/Pf [Morphine IntraThecdal Pump] 1 each IT AD 06/30/18 [History] Pantoprazole Sodium [Protonix] 40 mg PO DAILY 06/30/18 [History] Testosterone Cypionate [Depo-Testosterone] 200 mg IM Q2W 06/30/18 [History] hydroCHLOROthiazide [Hydrochlorothiazide] 25 mg PO DAILY 06/30/18 [History] Artificial Tears SOLN [Akwa Tears] 1 drop BOTH EYES QID PRN 30 Days #2 bottle 07/01/18 [Rx] Fenofibrate [Tricor] 162 mg PO DAILY 30 Days #30 tablet 07/01/18 [Rx] metFORMIN [Glucophage] 850 mg PO BIDWM 30 Days #60 tablet 07/01/18 [Rx] Allergies/Adverse Reactions: Allergy/AdvReac Type Severity Reaction Status Date / Time Penicillins [PCN] Allergy See Verified 06/30/18 19:27 Comments simvastatin AdvReac Muscle Pain Verified 06/30/18 19:27 Date of admission: 06/29/18 18:42 Primary care physician: PCP NONE Consults: 06/29/18 17:09 Consult to Neurology [CONS] Routine Consulting Provider: Neurology [facility] Reason for Consult: Urias's palsy Call Completed: Yes 06/30/18 07:54 Consult to Occupational Therapy [CONS] Routine Comment: Evaluate, develop and implement POC Reason for Consult: right sided weakness Does patient have active BEDREST order?: No Is patient medically & hemodynamically stable?: Yes Consult to Physical Therapy [CONS] Routine Comment: Evaluate, develop and implement POC Reason for Consult: right sided weakness Does patient have active BEDREST order?: No Is patient medically & hemodynamically stable?: Yes - Constitutional Vitals: Temp Pulse Resp BP Pulse Ox 97.9 F 83 16 120/79 97 07/01/18 06:48 07/01/18 06:48 07/01/18 06:48 07/01/18 06:48 07/01/18 06:48 Exam: Vitals: Reviewed. General: Alert and oriented 4. In no acute distress. Skin: Normal color, no rash, no lesions. Cardiovascular: RRR, normal S1 & S2, no rubs, murmurs or gallops. No JVD. Pulse regular. Lungs: Clear breath sounds auscultation bilaterally, no wheezes or crackles. Abdomen: Obese, soft, non-tender, no rigidity. NABS in all 4 quadrants Extremities: strength in the lower extr 5/5 b/l. Neurological: facial droop continues to improve. Rest of the physical exam is non contributory - Patient Status Disposition: Home, Self-Care Condition: Good Functional capacity at discharge: independent ambulation Overall status at discharge: patient is progressing back to baseline - Discharge Instructions Follow Up With: Jenaro Robles Jr, MD [Partnered Physician] - (Hospital follow up appointment has been requested. Office will call with date and time of appointment. ) - Diet and Activity Activity: resume usual activities as tolerated Diet: diabetic diet, low salt diet
--- NOTE | 2018-07-04 14:06 | Electrocardiograph Report ---
[address] [address] Test Date: 2018-06-29 Pat Name: Eben Plascencia Department: [id number] Room: 3B21 Gender: M Protective Clothing Issuer: : [id number] Requested By: Prem Steinberg Order Number: [id number] Reading MD: Candace Pineda Measurements Intervals [place] Rate: 84 P: 44 MA: 151 QRS: -8 QRSD: 96 T: 80 QT: 358 QTc: 424 Interpretive Statements Sinus rhythm Left atrial enlargement Electronically Signed On 07-04-2018 14:04:50 EST by Candace Pineda
== END 2018-07-01 10:09 | disposition home or self-care (01) ==
LOC: EMEROOARM 15:34 → 3BNU 15:34
PROVIDERS: ADMIT Internal Medicine; ATTEND Internal Medicine

== ENCOUNTER 2019-07-14 22:01 | Inpatient (IN) ==
[2019-07-14] MEDS ORDERED: Morphine Sulfate 2 MG/ML SYRINGE SQ ONE ×2 (22:15→23:15)
[2019-07-14] MEDS ORDERED: Dexamethasone 4 MG/ML VIAL IM ONE (23:16)
[2019-07-15] MEDS ORDERED: *HR* HYDROcodone/Acet 10/325 mg TABLET PO ONE (00:43)
[2019-07-15] MEDS ORDERED: 0.9 % Sodium Chloride 250 ML IVC ONE (00:46)
[2019-07-15] MEDS ORDERED: *HR* HYDROmorphone (PF) 1 MG/ML SYRINGE IVP ONE (03:03)
[2019-07-15] MEDS ORDERED: Naloxone 0.4 MG/ML INJ IVP PRN ×2 (03:07→03:45)
[2019-07-15 03:24] LABS: Basophils % 0.2 %; Eosinophils # 0.1 K/mcL (0.0-0.6); Immature Granulocytes % 0.3 % (0-4); Lymphocytes # 1.5 K/mcL (0.6-4.6); Lymphocytes % 11.6 %; Mean Corpuscular HGB Conc 35.8 g/dL (31.6-35.5); Mean Corpuscular Hemoglobin 34.2 pg (28.0-33.3); Mean Corpuscular Volume 95.6 fL (83.0-100.0); Monocytes # 0.7 K/mcL (0.0-1.3); Monocytes % 5.3 %; Neutrophils # 10.2 K/mcL (1.6-8.9); Platelet Count 232 K/mcL (140-400); Red Blood Count 5.88 M/mcL (4.19-5.50); Red Cell Distribution Width 11.9 % (11.5-14.5); Segmented Neutrophils % 81.6 %
[2019-07-15 03:25] LABS: Hematocrit 56.2 % (37.5-50.1); Hemoglobin 20.1 g/dL (12.9-16.9); White Blood Count 12.5 K/mcL (4.3-11.1)
[2019-07-15 03:31] LABS: INR 1.2; Prothrombin Time 13.5 Seconds (9.4-12.1)
[2019-07-15] MEDS ORDERED: Morphine PCA 30 MG/ 30 ML 30 ML PCA.VIAL IVC PRN ×2 (03:45→05:53)
[2019-07-15 03:49] LABS: Alanine Aminotransferase 41 Units/L (7-52); Albumin 4.3 g/dL (3.5-5.7); Albumin/Globulin Ratio 1.5 (1.1-2.2); Alkaline Phosphatase 82 Units/L (34-104); Aspartate Amino Transferase 83 Units/L (13-39); BUN/Creatinine Ratio 10 (6-26); Blood Urea Nitrogen 11 mg/dL (8-23); C-Reactive Protein 11 mg/L (Less than 10); Calcium 9.6 mg/dL (8.6-10.3); Carbon Dioxide 29 mEq/L (23-29); Chloride 100 mEq/L (98-107); Globulin 2.8 g/dL (2.4-3.5); Glucose 140 mg/dL (70-105); Osmolality,Calculated 286 (280-300); Potassium 3.4 mEq/L (3.5-5.1); Sodium 137 mEq/L (136-145); Total Protein 7.1 g/dL (6.4-8.9); eGFR For African Americans > 60 (> 60); eGFR For Non-African Americans > 60 (> 60)
[2019-07-15] MEDS ORDERED: Gadolinium Contrast Agent (WT Based) IV PRN (04:10)
[2019-07-15] MEDS: Ketorolac 30 MG/ML VIAL IVP PRN ×2 (04:23→14:04)
[2019-07-15] MEDS ORDERED: *HR* LORazepam 2 MG/ML VIAL IVP ONE ×2 (05:56→08:02)
[2019-07-15] MEDS ORDERED: Pregabalin 75 MG CAPSULE PO ONE (06:47)
[2019-07-15] MEDS ORDERED: Dextrose Gel 15 GM/37.5 ML TUBE PO PRN ×2 (07:38)
[2019-07-15] MEDS ORDERED: *HR* Dextrose 50 % in Water (Syg) 50 ML SYRINGE IVP PRN (07:38)
[2019-07-15] MEDS ORDERED: D5% in Water 1,000 ML IVC PRN (07:38)
[2019-07-15] MEDS ORDERED: SUMAtriptan succinate 50 MG TABLET PO PRN (08:08)
[2019-07-15] MEDS ORDERED: Artificial Tears SOLN 15 ML BOTTLE RIGHT EYE PRN (08:08)
[2019-07-15] MEDS ORDERED: *HR* HYDROmorphone 20 MG/20 ML PCA IVC PRN (08:08)
[2019-07-15] MEDS ORDERED: methylPREDNISolone 125 MG/2 ML VIAL IVP ONE (08:10)
[2019-07-15] MEDS: Aspirin Enteric Coated 81 MG Tablet PO SCH (08:43)
[2019-07-15] MEDS: Cyanocobalamin (B-12) 1,000 MCG TABLET PO SCH (08:43)
[2019-07-15] MEDS: Vitamin E 200 UNIT (90MG) CAPSULE PO SCH (08:44)
[2019-07-15] MEDS: hydroCHLOROthiazide 25 MG TABLET PO SCH (08:44)
[2019-07-15] MEDS: PARoxetine 20 MG TABLET PO SCH (08:44)
[2019-07-15] MEDS ORDERED: [UNRECOGNIZED DRUG - OTHER] PO SCH (12:00)
[2019-07-15] MEDS ORDERED: AMPHETAMINE PO SCH (12:00)
[2019-07-15] MEDS ORDERED: DEXTROAMPHETAMINE PO SCH (12:00)
[2019-07-15] MEDS: Insulin LISPRO 300 UNITS/3 ML VIAL SQ SCH ×2 (12:06→17:47)
[2019-07-15] MEDS: clonazePAM 1 MG TABLET PO PRN (12:46)
[2019-07-15] MEDS: Pregabalin 75 MG CAPSULE PO SCH ×2 (12:55→21:43)
[2019-07-15] MEDS: methylPREDNISolone 125 MG/2 ML VIAL IVP SCH ×2 (16:58→22:40)
[2019-07-15] MEDS: QUEtiapine Fumarate 25 MG TABLET PO SCH (21:43)
[2019-07-16] MEDS ORDERED: Dextrose Gel 15 GM/37.5 ML TUBE PO PRN ×2 (04:06)
[2019-07-16] MEDS ORDERED: *HR* Dextrose 50 % in Water (Syg) 50 ML SYRINGE IVP PRN (04:06)
[2019-07-16 05:57] LABS: Basophils % 0.1 %; Hemoglobin 20.1 g/dL (12.9-16.9); Immature Granulocytes % 0.4 % (0-4); Lymphocytes # 1.2 K/mcL (0.6-4.6); Lymphocytes % 8.6 %; Mean Corpuscular HGB Conc 33.6 g/dL (31.6-35.5); Mean Corpuscular Hemoglobin 32.3 pg (28.0-33.3); Mean Corpuscular Volume 96.1 fL (83.0-100.0); Mean Platelet Volume 8.7 fL (9.4-12.4); Monocytes # 0.9 K/mcL (0.0-1.3); Neutrophils # 12.2 K/mcL (1.6-8.9); Platelet Count 250 K/mcL (140-400); Red Blood Count 6.23 M/mcL (4.19-5.50); Red Cell Distribution Width 12.1 % (11.5-14.5); Segmented Neutrophils % 84.9 %; White Blood Count 14.4 K/mcL (4.3-11.1)
[2019-07-16 06:03] LABS: Hematocrit 59.9 % (37.5-50.1)
[2019-07-16 06:25] LABS: BUN/Creatinine Ratio 27 (6-26); Blood Urea Nitrogen 27 mg/dL (8-23); Calcium 9.6 mg/dL (8.6-10.3); Carbon Dioxide 30 mEq/L (23-29); Chloride 102 mEq/L (98-107); Glucose 159 mg/dL (70-105); Osmolality,Calculated 298 (280-300); Potassium 3.6 mEq/L (3.5-5.1); Sodium 140 mEq/L (136-145); eGFR For African Americans > 60 (> 60); eGFR For Non-African Americans > 60 (> 60)
[2019-07-16] MEDS: Vitamin E 200 UNIT (90MG) CAPSULE PO SCH (08:28)
[2019-07-16] MEDS: methylPREDNISolone 125 MG/2 ML VIAL IVP SCH (08:28)
[2019-07-16] MEDS: Insulin LISPRO 300 UNITS/3 ML VIAL SQ SCH ×3 (08:28→16:43)
[2019-07-16] MEDS: PARoxetine 20 MG TABLET PO SCH (08:29)
[2019-07-16] MEDS: hydroCHLOROthiazide 25 MG TABLET PO SCH (08:29)
[2019-07-16] MEDS: Cyanocobalamin (B-12) 1,000 MCG TABLET PO SCH (08:29)
[2019-07-16] MEDS: Aspirin Enteric Coated 81 MG Tablet PO SCH (08:29)
[2019-07-16] MEDS: Pregabalin 75 MG CAPSULE PO SCH ×2 (08:29→21:43)
[2019-07-16] MEDS ORDERED: Isovue-370 500 ML BOTTLE IVP ONE (10:58)
[2019-07-16] MEDS: clonazePAM 1 MG TABLET PO PRN ×2 (11:05→21:43)
[2019-07-16] MEDS: QUEtiapine Fumarate 25 MG TABLET PO SCH (21:43)
[2019-07-17 06:22] LABS: Basophils % 0.1 %; Eosinophils # 0.1 K/mcL (0.0-0.6); Eosinophils % 0.5 %; Hemoglobin 18.9 g/dL (12.9-16.9); Immature Granulocytes % 0.2 % (0-4); Lymphocytes % 19.9 %; Mean Corpuscular HGB Conc 34.1 g/dL (31.6-35.5); Mean Corpuscular Volume 96.9 fL (83.0-100.0); Monocytes # 1.1 K/mcL (0.0-1.3); Monocytes % 7.5 %; Neutrophils # 10.7 K/mcL (1.6-8.9); Platelet Count 246 K/mcL (140-400); Red Blood Count 5.72 M/mcL (4.19-5.50); Red Cell Distribution Width 12.1 % (11.5-14.5); Segmented Neutrophils % 71.8 %
[2019-07-17 06:25] LABS: Hematocrit 55.4 % (37.5-50.1)
[2019-07-17 06:28] LABS: BUN/Creatinine Ratio 32 (6-26); Blood Urea Nitrogen 31 mg/dL (8-23); Carbon Dioxide 30 mEq/L (23-29); Chloride 97 mEq/L (98-107); Glucose 155 mg/dL (70-105); Osmolality,Calculated 290 (280-300); Potassium 3.2 mEq/L (3.5-5.1); Sodium 135 mEq/L (136-145); eGFR For African Americans > 60 (> 60); eGFR For Non-African Americans > 60 (> 60)
[2019-07-17 06:30] VITALS: BP 135/84
[2019-07-17] MEDS: PARoxetine 20 MG TABLET PO SCH (08:30)
[2019-07-17] MEDS: Vitamin E 200 UNIT (90MG) CAPSULE PO SCH (08:30)
[2019-07-17] MEDS: Aspirin Enteric Coated 81 MG Tablet PO SCH (08:30)
[2019-07-17] MEDS: Pregabalin 75 MG CAPSULE PO SCH (08:31)
[2019-07-17] MEDS: Cyanocobalamin (B-12) 1,000 MCG TABLET PO SCH (08:31)
[2019-07-17] MEDS: Insulin LISPRO 300 UNITS/3 ML VIAL SQ SCH (08:31)
[2019-07-17] MEDS: hydroCHLOROthiazide 25 MG TABLET PO SCH (08:31)
== END 2019-07-17 09:56 | disposition home or self-care (01) | DRG 93 ==
LOC: 3NENU 22:01 → EMEROOARM 22:01 → SUATTDRO 07-15 01:39 → 3NENU 07-15 01:42
PROVIDERS: ADMIT Family Medicine; ATTEND Internal Medicine

== ENCOUNTER 2020-02-24 08:41 | Observation (INO) ==
[2020-02-24] MEDS ORDERED: 0.9 % Sodium Chloride 1,000 ML IVC ONE (08:56)
[2020-02-24] MEDS ORDERED: cefTRIAXone 1,000 MG in Water for inj. (sterile) 10 ML IVP ONE (09:08)
[2020-02-24 09:30] LABS: Basophils % 0.2 %; Eosinophils # 0.1 K/mcL (0.0-0.6); Eosinophils % 1.1 %; Immature Granulocytes % 0.4 % (0-4); Lymphocytes # 0.9 K/mcL (0.6-4.6); Lymphocytes % 8.1 %; Mean Corpuscular Hemoglobin 31.1 pg (28.0-33.3); Mean Corpuscular Volume 91.6 fL (83.0-100.0); Mean Platelet Volume 8.2 fL (9.4-12.4); Monocytes # 1.1 K/mcL (0.0-1.3); Monocytes % 9.4 %; Neutrophils # 9.1 K/mcL (1.6-8.9); Platelet Count 269 K/mcL (140-400); Red Blood Count 6.43 M/mcL (4.19-5.50); Red Cell Distribution Width 12.9 % (11.5-14.5); Segmented Neutrophils % 80.8 %
[2020-02-24 09:37] LABS: Hematocrit 58.9 % (37.5-50.1); White Blood Count 11.3 K/mcL (4.3-11.1)
[2020-02-24 09:38] LABS: Alanine Aminotransferase 18 Units/L (7-52); Albumin 4.2 g/dL (3.5-5.7); Albumin/Globulin Ratio 1.4 (1.1-2.2); Alkaline Phosphatase 73 Units/L (34-104); Aspartate Amino Transferase 18 Units/L (13-39); BUN/Creatinine Ratio 18 (6-26); Bilirubin,Direct 0.2 mg/dL (0.0-0.2); Bilirubin,Indirect 1.1 mg/dL (0.0-1.0); Bilirubin,Total 1.3 mg/dL (0.3-1.0); Blood Urea Nitrogen 17 mg/dL (8-23); Calcium 9.4 mg/dL (8.6-10.3); Carbon Dioxide 25 mEq/L (23-29); Chloride 98 mEq/L (98-107); Creatine Kinase 48 Units/L (30-223); Globulin 2.9 g/dL (2.4-3.5); Glucose 165 mg/dL (70-105); Lipase 15 Units/L (11-82); Magnesium 1.8 mg/dL (1.6-2.6); Osmolality,Calculated 289 (280-300); Potassium 3.6 mEq/L (3.5-5.1); Sodium 137 mEq/L (136-145); Total Protein 7.1 g/dL (6.4-8.9); Troponin I < 0.03 ng/mL (< 0.04); eGFR For African Americans > 60 (> 60); eGFR For Non-African Americans > 60 (> 60)
[2020-02-24] MEDS ORDERED: Ondansetron 4 MG/2 ML VIAL IVP STA (09:39)
[2020-02-24 09:49] LABS: VBG HCO3 28 mEq/L (21-27); VBG PCO2 39 mmHg (41-51); VBG PH 7.46 pH Units (7.32-7.42); VBG PO2 245 mmHg (25-50)
[2020-02-24 10:12] LABS: Adenovirus Not Detected (Not Detect); Bordetella Pertussis Not Detected (Not Detect); Chlamydophila pneumoniae Not Detected (Not Detect); Coronavirus 229E Not Detected (Not Detect); Coronavirus HKU1 Not Detected (Not Detect); Coronavirus NL63 Not Detected (Not Detect); Coronavirus OC43 Not Detected (Not Detect); Human Metapneumovirus Not Detected (Not Detect); Human Rhinovirus/Enterovirus Not Detected (Not Detect); Influenza A Subtype 2009 H1 Not Detected (Not Detect); Influenza B Not Detected (Not Detect); Mycoplasma pneumoniae Not Detected (Not Detect); Parainfluenza Virus 1 Not Detected (Not Detect); Parainfluenza Virus 2 Not Detected (Not Detect); Parainfluenza Virus 3 Not Detected (Not Detect); Parainfluenza Virus 4 Not Detected (Not Detect); Respiratory Syncytial Virus Not Detected (Not Detect); SARS-CoV-2 Not Detected (Not Detect)
[2020-02-24 10:26] LABS: Bacteria,Urine Few per hpf (None-Few); Bilirubin,Urine Negative (Negative); Blood,Urine Negative (Negative); Clarity,Urine Clear (Clear); Color,Urine Yellow (Yellow); Glucose,Urine (UA) Normal (Normal); Ketones,Urine 80 mg/dL (Negative); Leukocyte Esterase,Urine Moderate (Negative); Mucus,Urine Few per lpf (None-Few); Nitrite,Urine Negative (Negative); Protein,Urine 30 mg/dL (Neg-Trace); Specific Gravity,Urine 1.022 (1.010-1.025); Squamous Epithelial Cell,Urine Few per hpf (None-Few); WBC,Urine 30-50 per hpf (0-3)
[2020-02-24] MEDS ORDERED: *HR* Dextrose 50 % in Water (Vial) 50 ML VIAL IVP PRN (11:59)
[2020-02-24] MEDS ORDERED: Naloxone 0.4 MG/ML INJ IVP PRN (11:59)
[2020-02-24] MEDS ORDERED: Acetaminophen 325 MG TABLET PO PRN (11:59)
[2020-02-24] MEDS ORDERED: D5% in Water 1,000 ML IVC PRN (11:59)
[2020-02-24] MEDS ORDERED: Ondansetron 4 MG/2 ML VIAL IVP PRN (11:59)
[2020-02-24] MEDS ORDERED: Dextrose Gel 15 GM/37.5 ML TUBE PO PRN ×2 (11:59)
[2020-02-24] MEDS ORDERED: cloNIDine HCL 0.1 MG TABLET PO ONE (13:16)
[2020-02-24] MEDS: Insulin LISPRO 300 UNITS/3 ML VIAL SQ SCH (16:42)
[2020-02-25 01:55] LABS: Basophils % 0.3 %; Eosinophils # 0.1 K/mcL (0.0-0.6); Eosinophils % 1.2 %; Hemoglobin 19.1 g/dL (12.9-16.9); Immature Granulocytes % 0.5 % (0-4); Lymphocytes # 1.4 K/mcL (0.6-4.6); Lymphocytes % 11.9 %; Mean Corpuscular Hemoglobin 30.8 pg (28.0-33.3); Mean Corpuscular Volume 93.2 fL (83.0-100.0); Mean Platelet Volume 8.4 fL (9.4-12.4); Monocytes # 1.2 K/mcL (0.0-1.3); Neutrophils # 8.9 K/mcL (1.6-8.9); Platelet Count 289 K/mcL (140-400); Red Cell Distribution Width 13.2 % (11.5-14.5); Segmented Neutrophils % 76.1 %; White Blood Count 11.7 K/mcL (4.3-11.1)
[2020-02-25 01:57] LABS: Hematocrit 57.8 % (37.5-50.1)
[2020-02-25 02:13] LABS: BUN/Creatinine Ratio 21 (6-26); Blood Urea Nitrogen 19 mg/dL (8-23); Calcium 8.5 mg/dL (8.6-10.3); Carbon Dioxide 28 mEq/L (23-29); Chloride 101 mEq/L (98-107); Glucose 135 mg/dL (70-105); Osmolality,Calculated 292 (280-300); Potassium 3.4 mEq/L (3.5-5.1); Sodium 139 mEq/L (136-145); eGFR For African Americans > 60 (> 60); eGFR For Non-African Americans > 60 (> 60)
[2020-02-25] MEDS ORDERED: SUMAtriptan succinate 50 MG TABLET PO PRN (07:16)
[2020-02-25] MEDS: Insulin LISPRO 300 UNITS/3 ML VIAL SQ SCH ×3 (08:38→16:31)
[2020-02-25] MEDS ORDERED: Celecoxib 200 MG CAPSULE PO SCH (09:00)
[2020-02-25] MEDS ORDERED: PARoxetine 20 MG TABLET PO SCH (09:00)
[2020-02-25] MEDS ORDERED: hydroCHLOROthiazide 25 MG TABLET PO SCH (09:00)
[2020-02-25] MEDS ORDERED: Cefdinir 300 MG CAPSULE PO SCH (09:00)
[2020-02-25] MEDS ORDERED: Cyanocobalamin (B-12) 1,000 MCG TABLET PO SCH (09:00)
[2020-02-25] MEDS ORDERED: Cholecalciferol (D-3) 1,000 UNIT (25MCG) TABLET PO SCH (09:00)
[2020-02-25] MEDS ORDERED: Morphine Sulfate/Pf [Morphine Intrathecdal Pump] IT PRN (11:25)
[2020-02-25] MEDS ORDERED: Potassium Chloride Elixir 20 MEQ/15 ML UDC PO ONE (11:53)
[2020-02-25] MEDS: metroNIDAZOLE 500 MG TABLET PO SCH ×2 (14:14→21:04)
[2020-02-25] MEDS: *HR* Heparin 5,000 UNIT/ML VIAL SQ SCH (16:33)
[2020-02-25 20:02] LABS: Adenovirus F 40/41 PCR Not detected (Not detect); Astrovirus PCR Not detected (Not detect); C.difficile Toxin A/B Gene PCR Not detected (Not detect); Campylobacter by PCR Not detected (Not detect); Cryptosporidium by PCR Not detected (Not detect); Cyclospora cayetanensis PCR Not detected (Not detect); E. coli O157 by PCR Not detected (Not detect); Entamoeba histolytica PCR Not detected (Not detect); Enteroaggregative E.coli(EAEC) Not detected (Not detect); Enteropathogenic E.coli(EPEC) Not detected (Not detect); Enterotoxigenic E.coli (ETEC) Not detected (Not detect); Giardia lamblia PCR Not detected (Not detect); Norovirus GI/GII PCR Not detected (Not detect); Plesiomonas shigelloides PCR Not detected (Not detect); Rotavirus A PCR Not detected (Not detect); Salmonella PCR Not detected (Not detect); Sapovirus PCR Not detected (Not detect); Shig/EnteroinvasiveE coli EIEC Not detected (Not detect); Shigalike tox-prod E coli STEC Not detected (Not detect); Vibrio PCR Not detected (Not detect); Vibrio cholerae PCR Not detected (Not detect); Yersinia enterocolitica PCR Not detected (Not detect)
[2020-02-26] MEDS: *HR* Heparin 5,000 UNIT/ML VIAL SQ SCH (05:22)
[2020-02-26 06:55] LABS: Basophils # 0.1 K/mcL (0.0-0.2); Basophils % 0.5 %; Eosinophils # 0.3 K/mcL (0.0-0.6); Eosinophils % 2.9 %; Hemoglobin 19.8 g/dL (12.9-16.9); Immature Granulocytes % 0.7 % (0-4); Lymphocytes # 1.4 K/mcL (0.6-4.6); Lymphocytes % 13.7 %; Mean Corpuscular HGB Conc 33.3 g/dL (31.6-35.5); Mean Corpuscular Hemoglobin 31.7 pg (28.0-33.3); Mean Corpuscular Volume 95.4 fL (83.0-100.0); Mean Platelet Volume 8.4 fL (9.4-12.4); Monocytes # 0.8 K/mcL (0.0-1.3); Monocytes % 8.1 %; Neutrophils # 7.4 K/mcL (1.6-8.9); Platelet Count 245 K/mcL (140-400); Red Blood Count 6.24 M/mcL (4.19-5.50); Red Cell Distribution Width 13.3 % (11.5-14.5); Segmented Neutrophils % 74.1 %
[2020-02-26 06:56] LABS: Hematocrit 59.5 % (37.5-50.1)
[2020-02-26 07:13] LABS: Alanine Aminotransferase 15 Units/L (7-52); Albumin 4.1 g/dL (3.5-5.7); Albumin/Globulin Ratio 1.4 (1.1-2.2); Alkaline Phosphatase 78 Units/L (34-104); Aspartate Amino Transferase 18 Units/L (13-39); BUN/Creatinine Ratio 18 (6-26); Bilirubin,Total 0.6 mg/dL (0.3-1.0); Blood Urea Nitrogen 19 mg/dL (8-23); Calcium 9.1 mg/dL (8.6-10.3); Carbon Dioxide 32 mEq/L (23-29); Chloride 95 mEq/L (98-107); Globulin 2.9 g/dL (2.4-3.5); Glucose 114 mg/dL (70-105); Osmolality,Calculated 285 (280-300); Potassium 3.7 mEq/L (3.5-5.1); Sodium 136 mEq/L (136-145); eGFR For African Americans > 60 (> 60); eGFR For Non-African Americans > 60 (> 60)
[2020-02-26 08:02] VITALS: BP 142/91
== END 2020-02-26 09:35 | disposition home or self-care (01) ==
LOC: EMEROOARM 08:41 → 3ANU 08:41 → SUATTDRO 11:37 → 3ANU 12:30
PROVIDERS: ADMIT Internal Medicine; ATTEND Internal Medicine

== ENCOUNTER 2020-07-17 18:26 | Inpatient (IN) ==
[2020-07-17] MEDS ORDERED: 0.9 % Sodium Chloride 1,000 ML IVC ONE (18:54)
[2020-07-17] MEDS ORDERED: levoFLOXacin 750 MG/150 ML 750 MG/150 ML BAG IVPB ONE (19:02)
[2020-07-17 19:36] LABS: Basophils % 0.2 %; Hemoglobin 19.4 g/dL (12.9-16.9); Immature Granulocytes % 0.3 % (0-4); Mean Platelet Volume 8.6 fL (9.4-12.4); Red Cell Distribution Width 12.6 % (11.5-14.5)
[2020-07-17 19:38] LABS: Carboxyhemoglobin 8.4 % (0-5); Eosinophils % 0.1 %; Immature Platelets 1.2 % (1.1-6.1); Mean Corpuscular HGB Conc 33.2 g/dL (31.6-35.5); Mean Corpuscular Hemoglobin 30.5 pg (28.0-33.3); Monocytes # 0.6 K/mcL (0.0-1.3); Monocytes % 5.3 %; Neutrophils # 8.7 K/mcL (1.6-8.9); Platelet Count 230 K/mcL (140-400); Red Blood Count 6.36 M/mcL (4.19-5.50); Segmented Neutrophils % 84.1 %; White Blood Count 10.3 K/mcL (4.3-11.1)
[2020-07-17 19:46] LABS: INR 1.1; Prothrombin Time 13.2 Seconds (9.4-12.1)
[2020-07-17 19:58] LABS: Hematocrit 58.5 % (37.5-50.1)
[2020-07-17 19:59] LABS: Large Platelets Present (Not Present); Platelet Estimate Normal (Normal)
[2020-07-17 20:15] LABS: Alanine Aminotransferase 18 Units/L (7-52); Albumin 4.3 g/dL (3.5-5.7); Albumin/Globulin Ratio 1.7 (1.1-2.2); Alkaline Phosphatase 63 Units/L (34-104); Aspartate Amino Transferase 21 Units/L (13-39); BUN/Creatinine Ratio 15 (6-26); Bilirubin,Direct 0.1 mg/dL (0.0-0.2); Bilirubin,Indirect 0.9 mg/dL (0.0-1.0); Blood Urea Nitrogen 15 mg/dL (8-23); Calcium 9.1 mg/dL (8.6-10.3); Carbon Dioxide 23 mEq/L (23-29); Chloride 102 mEq/L (98-107); Creatine Kinase 131 Units/L (30-223); Ethanol < 10 mg/dL (Less than 10); Globulin 2.5 g/dL (2.4-3.5); Glucose 179 mg/dL (70-105); Osmolality,Calculated 285 (280-300); Potassium 3.1 mEq/L (3.5-5.1); Sodium 135 mEq/L (136-145); Total Protein 6.8 g/dL (6.4-8.9); Troponin I 0.03 ng/mL (< 0.04); eGFR For African Americans > 60 (> 60); eGFR For Non-African Americans > 60 (> 60)
[2020-07-17] MEDS ORDERED: *HR* FentaNYL (PF) 100 MCG/2 ML VIAL IVP ONE (20:35)
[2020-07-17] MEDS ORDERED: Isovue-370 500 ML BOTTLE IVP ONE (20:55)
[2020-07-17 21:08] LABS: Bacteria,Urine Many per hpf (None-Few); Bilirubin,Urine Negative (Negative); Blood,Urine Negative (Negative); Budding Yeast,Urine Few per hpf (None Seen); Clarity,Urine Turbid (Clear); Color,Urine Yellow (Yellow); Glucose,Urine (UA) Normal (Normal); Ketones,Urine 20 mg/dL (Negative); Leukocyte Esterase,Urine Large (Negative); Nitrite,Urine Negative (Negative); Protein,Urine 30 mg/dL (Neg-Trace); RBC,Urine 15-30 per hpf (0-3); Urobilinogen,Urine Normal (Normal); WBC,Urine TNTC per hpf (0-3)
[2020-07-17 21:16] LABS: Amphetamine Screen,Urine Negative ng/mL (Cutoff=1000); Barbiturate Screen,Urine Negative ng/mL (Cutoff=200); Benzodiazepines Screen,Urine Negative ng/mL (Cutoff=200); Cannabinoid Screen,Urine Negative ng/mL (Cutoff = 50); Cocaine Screen,Urine Negative ng/mL (Cutoff= 300); Opiate Screen,Urine Positive ng/mL (Cutoff=300); Phencyclidine Screen,Urine Negative ng/mL (Cutoff=25)
[2020-07-17] MEDS ORDERED: Naloxone 0.4 MG/ML INJ IVP PRN (21:33)
[2020-07-17] MEDS ORDERED: Acetaminophen 325 MG TABLET PO PRN (21:33)
[2020-07-17] MEDS ORDERED: Ondansetron 4 MG/2 ML VIAL IVP PRN (21:33)
[2020-07-18] MEDS: Morphine Sulfate 2 MG/ML SYRINGE IVP PRN (00:08)
[2020-07-18] MEDS: Morphine PCA 30 MG/ 30 ML 30 ML PCA.VIAL IVC PRN ×2 (01:43→15:06)
[2020-07-18 03:34] LABS: Hemoglobin 19.4 g/dL (12.9-16.9); Mean Corpuscular HGB Conc 33.4 g/dL (31.6-35.5); Mean Corpuscular Hemoglobin 31.2 pg (28.0-33.3); Mean Corpuscular Volume 93.4 fL (83.0-100.0); Mean Platelet Volume 8.7 fL (9.4-12.4); Platelet Count 211 K/mcL (140-400); Red Blood Count 6.21 M/mcL (4.19-5.50); Red Cell Distribution Width 12.5 % (11.5-14.5)
[2020-07-18 03:53] LABS: BUN/Creatinine Ratio 13 (6-26); Blood Urea Nitrogen 14 mg/dL (8-23); Calcium 8.8 mg/dL (8.6-10.3); Carbon Dioxide 22 mEq/L (23-29); Chloride 106 mEq/L (98-107); Glucose 147 mg/dL (70-105); Osmolality,Calculated 291 (280-300); Potassium 3.2 mEq/L (3.5-5.1); Sodium 139 mEq/L (136-145); eGFR For African Americans > 60 (> 60); eGFR For Non-African Americans > 60 (> 60)
[2020-07-18] MEDS ORDERED: Potassium Chloride Elixir 20 MEQ/15 ML UDC PO ONE ×3 (04:23→12:00)
[2020-07-18] MEDS ORDERED: Dextrose Gel 15 GM/37.5 ML TUBE PO PRN ×2 (04:29)
[2020-07-18] MEDS ORDERED: D5% in Water 1,000 ML IVC PRN (04:29)
[2020-07-18] MEDS ORDERED: *HR* Dextrose 50 % in Water (Vial) 50 ML VIAL IVP PRN (04:29)
[2020-07-18] MEDS: *HR* Heparin 5,000 UNIT/ML VIAL SQ SCH ×3 (06:54→20:56)
[2020-07-18] MEDS: levoFLOXacin 750 MG/150 ML 750 MG/150 ML BAG IVPB SCH (10:38)
[2020-07-18] MEDS: Insulin LISPRO 300 UNITS/3 ML VIAL SUBQ SCH ×3 (11:04→17:52)
[2020-07-18] MEDS ORDERED: Perflutren Lipid Microsphere 1.3 ML in 0.9 % Sodium Chloride 8.7 ML IVP PRN (13:49)
[2020-07-18] MEDS: 0.9 % Sodium Chloride 1,000 ML IVC SCH (15:15)
[2020-07-19 01:05] LABS: Basophils % 0.3 %; Eosinophils # 0.2 K/mcL (0.0-0.6); Eosinophils % 2.9 %; Hematocrit 52.8 % (37.5-50.1); Immature Granulocytes % 0.3 % (0-4); Lymphocytes # 2.1 K/mcL (0.6-4.6); Lymphocytes % 30.4 %; Mean Corpuscular HGB Conc 32.8 g/dL (31.6-35.5); Mean Corpuscular Hemoglobin 30.6 pg (28.0-33.3); Mean Corpuscular Volume 93.3 fL (83.0-100.0); Mean Platelet Volume 8.8 fL (9.4-12.4); Monocytes # 0.5 K/mcL (0.0-1.3); Monocytes % 7.8 %; Platelet Count 195 K/mcL (140-400); Red Blood Count 5.66 M/mcL (4.19-5.50); Red Cell Distribution Width 13.1 % (11.5-14.5); Segmented Neutrophils % 58.3 %; White Blood Count 6.9 K/mcL (4.3-11.1)
[2020-07-19 01:06] LABS: Hemoglobin 17.3 g/dL (12.9-16.9)
[2020-07-19 01:25] LABS: BUN/Creatinine Ratio 14 (6-26); Blood Urea Nitrogen 14 mg/dL (8-23); Calcium 8.2 mg/dL (8.6-10.3); Carbon Dioxide 24 mEq/L (23-29); Chloride 106 mEq/L (98-107); Glucose 143 mg/dL (70-105); Osmolality,Calculated 289 (280-300); Potassium 3.4 mEq/L (3.5-5.1); Sodium 138 mEq/L (136-145); eGFR For African Americans > 60 (> 60); eGFR For Non-African Americans > 60 (> 60)
[2020-07-19] MEDS ORDERED: Morphine Sulfate Immed Rel 30 MG TABLET PO ONE (04:50)
[2020-07-19] MEDS: *HR* Heparin 5,000 UNIT/ML VIAL SQ SCH ×3 (06:11→21:51)
[2020-07-19] MEDS: Insulin LISPRO 300 UNITS/3 ML VIAL SUBQ SCH ×3 (07:45→17:28)
[2020-07-19] MEDS: Morphine Sulfate 2 MG/ML SYRINGE IVP PRN ×4 (08:04→21:51)
[2020-07-19] MEDS: levoFLOXacin 750 MG/150 ML 750 MG/150 ML BAG IVPB SCH (08:09)
[2020-07-19] MEDS: 0.9 % Sodium Chloride 1,000 ML IVC SCH (08:11)
[2020-07-19] MEDS ORDERED: Potassium Chloride Elixir 20 MEQ/15 ML UDC PO ONE (09:48)
[2020-07-19] MEDS: Morphine Sulfate Immed Rel 30 MG TABLET PO PRN ×2 (10:32→18:41)
[2020-07-19 18:44] LABS: Bilirubin,Urine Negative (Negative); Blood,Urine Negative (Negative); Clarity,Urine Clear (Clear); Color,Urine Light-Yellow (Yellow); Glucose,Urine (UA) Normal (Normal); Ketones,Urine Negative (Negative); Leukocyte Esterase,Urine Small (Negative); Mucus,Urine Few per lpf (None-Few); Nitrite,Urine Negative (Negative); PH,Urine 5.5 pH Units (5.0-8.0); Protein,Urine Trace mg/dL (Neg-Trace); RBC,Urine 0-3 per hpf (0-3); Specific Gravity,Urine 1.019 (1.010-1.025); Squamous Epithelial Cell,Urine Few per hpf (None-Few); Urobilinogen,Urine Normal (Normal); WBC,Urine 15-30 per hpf (0-3)
[2020-07-20] MEDS: Morphine Sulfate Immed Rel 30 MG TABLET PO PRN ×2 (00:43→07:35)
[2020-07-20 01:25] LABS: Basophils % 0.3 %; Eosinophils # 0.4 K/mcL (0.0-0.6); Eosinophils % 4.8 %; Hemoglobin 17.9 g/dL (12.9-16.9); Immature Granulocytes % 0.3 % (0-4); Lymphocytes # 2.1 K/mcL (0.6-4.6); Lymphocytes % 26.5 %; Mean Corpuscular HGB Conc 31.9 g/dL (31.6-35.5); Mean Corpuscular Hemoglobin 31.3 pg (28.0-33.3); Mean Corpuscular Volume 98.3 fL (83.0-100.0); Mean Platelet Volume 8.8 fL (9.4-12.4); Monocytes # 0.7 K/mcL (0.0-1.3); Monocytes % 8.3 %; Neutrophils # 4.8 K/mcL (1.6-8.9); Platelet Count 223 K/mcL (140-400); Red Blood Count 5.72 M/mcL (4.19-5.50); Red Cell Distribution Width 12.9 % (11.5-14.5); Segmented Neutrophils % 59.8 %
[2020-07-20 01:26] LABS: Hematocrit 56.2 % (37.5-50.1)
[2020-07-20 01:43] LABS: BUN/Creatinine Ratio 13 (6-26); Blood Urea Nitrogen 14 mg/dL (8-23); Calcium 9.1 mg/dL (8.6-10.3); Carbon Dioxide 28 mEq/L (23-29); Chloride 102 mEq/L (98-107); Glucose 125 mg/dL (70-105); Osmolality,Calculated 286 (280-300); Sodium 137 mEq/L (136-145); eGFR For African Americans > 60 (> 60); eGFR For Non-African Americans > 60 (> 60)
[2020-07-20] MEDS: Morphine Sulfate 2 MG/ML SYRINGE IVP PRN ×3 (01:53→08:27)
[2020-07-20] MEDS: *HR* Heparin 5,000 UNIT/ML VIAL SQ SCH (05:13)
[2020-07-20 07:01] VITALS: BP 169/113
[2020-07-20] MEDS: Insulin LISPRO 300 UNITS/3 ML VIAL SUBQ SCH (07:35)
[2020-07-20] MEDS ORDERED: levoFLOXacin 750 MG TABLET PO SCH (09:00)
[2020-07-20] MEDS ORDERED: Budesonide/Formoterol 160/4.5 1 PUFF INH IH SCH (10:00)
[2020-07-20] MEDS ORDERED: Tiotropium 10 INH DOSE IH SCH (10:00)
== END 2020-07-20 10:21 | disposition home health service (06) | DRG 92 ==
LOC: EMEROOARM 18:26 → 3NENU 18:26 → SUATTDRO 21:52 → 3NENU 22:35
PROVIDERS: ADMIT Internal Medicine; ATTEND Student in an Organized Health Care Education/Training Program

== ENCOUNTER 2020-08-07 12:37 | Observation (INO) ==
[2020-08-07] MEDS ORDERED: 0.9 % Sodium Chloride 1,000 ML IVC ONE (13:25)
[2020-08-07 13:56] LABS: Basophils % 0.2 %; Hemoglobin 18.7 g/dL (12.9-16.9); Immature Granulocytes % 0.4 % (0-4); Lymphocytes # 0.7 K/mcL (0.6-4.6); Lymphocytes % 4.3 %; Mean Corpuscular Hemoglobin 30.7 pg (28.0-33.3); Mean Corpuscular Volume 93.1 fL (83.0-100.0); Mean Platelet Volume 8.5 fL (9.4-12.4); Monocytes # 1.4 K/mcL (0.0-1.3); Monocytes % 8.2 %; Neutrophils # 14.9 K/mcL (1.6-8.9); Platelet Count 305 K/mcL (140-400); Red Blood Count 6.09 M/mcL (4.19-5.50); Red Cell Distribution Width 12.6 % (11.5-14.5); Segmented Neutrophils % 86.9 %; White Blood Count 17.1 K/mcL (4.3-11.1)
[2020-08-07 13:59] LABS: Hematocrit 56.7 % (37.5-50.1)
[2020-08-07 14:26] LABS: Alanine Aminotransferase 18 Units/L (7-52); Albumin 3.9 g/dL (3.5-5.7); Albumin/Globulin Ratio 1.3 (1.1-2.2); Alkaline Phosphatase 70 Units/L (34-104); Aspartate Amino Transferase 24 Units/L (13-39); BUN/Creatinine Ratio 23 (6-26); Bilirubin,Indirect 0.6 mg/dL (0.0-1.0); Bilirubin,Total 0.6 mg/dL (0.3-1.0); Blood Urea Nitrogen 24 mg/dL (8-23); Calcium 8.8 mg/dL (8.6-10.3); Carbon Dioxide 27 mEq/L (23-29); Chloride 104 mEq/L (98-107); Ethanol < 10 mg/dL (Less than 10); Globulin 3.1 g/dL (2.4-3.5); Glucose 203 mg/dL (70-105); Osmolality,Calculated 300 (280-300); Potassium 3.4 mEq/L (3.5-5.1); Sodium 140 mEq/L (136-145); eGFR For African Americans > 60 (> 60); eGFR For Non-African Americans > 60 (> 60)
[2020-08-07 14:27] LABS: Troponin I 0.07 ng/mL (< 0.04)
[2020-08-07] MEDS ORDERED: Aspirin 325 MG TABLET PO ONE (14:27)
[2020-08-07 14:31] LABS: Thyroid Stimulating Hormone 0.952 mcIU/mL (0.340-5.600)
[2020-08-07 14:45] LABS: Bilirubin,Urine Negative (Negative); Blood,Urine Negative (Negative); Clarity,Urine Clear (Clear); Color,Urine Yellow (Yellow); Glucose,Urine (UA) 500 mg/dL (Normal); Hyaline Casts,Urine Few per lpf (None Seen); Ketones,Urine 40 mg/dL (Negative); Leukocyte Esterase,Urine Negative (Negative); Mucus,Urine Few per lpf (None-Few); Nitrite,Urine Negative (Negative); Protein,Urine 70 mg/dL (Neg-Trace); RBC,Urine 0-3 per hpf (0-3); Specific Gravity,Urine > 1.030 (1.010-1.025); Squamous Epithelial Cell,Urine Few per hpf (None-Few); Urobilinogen,Urine Normal (Normal); WBC,Urine 0-3 per hpf (0-3)
[2020-08-07 14:51] LABS: Amphetamine Screen,Urine Positive ng/mL (Cutoff=1000); Barbiturate Screen,Urine Negative ng/mL (Cutoff=200); Benzodiazepines Screen,Urine Negative ng/mL (Cutoff=200); Cannabinoid Screen,Urine Negative ng/mL (Cutoff = 50); Cocaine Screen,Urine Negative ng/mL (Cutoff= 300); Opiate Screen,Urine Positive ng/mL (Cutoff=300); Phencyclidine Screen,Urine Negative ng/mL (Cutoff=25)
[2020-08-07 14:54] LABS: INR 1.4; Prothrombin Time 15.7 Seconds (9.4-12.1)
[2020-08-07] MEDS ORDERED: Azithromycin 500 MG in 0.9 % Sodium Chloride 250 ML IVPB ONE (15:23)
[2020-08-07] MEDS ORDERED: cefTRIAXone 1,000 MG in 0.9 % Sodium Chloride Mini Bag 100 ML IVPB ONE (15:23)
[2020-08-07] MEDS ORDERED: Naloxone 0.4 MG/ML INJ IVP PRN (15:49)
[2020-08-07] MEDS ORDERED: Acetaminophen 325 MG TABLET PO PRN (15:49)
[2020-08-07] MEDS ORDERED: Ondansetron 4 MG/2 ML VIAL IVP PRN (15:49)
[2020-08-07] MEDS ORDERED: D5% in Water 1,000 ML IVC PRN (15:54)
[2020-08-07] MEDS ORDERED: *HR* Dextrose 50 % in Water (Vial) 50 ML VIAL IVP PRN (15:54)
[2020-08-07] MEDS ORDERED: Dextrose Gel 15 GM/37.5 ML TUBE PO PRN ×2 (15:54)
[2020-08-07 16:05] LABS: Adenovirus Not Detected (Not Detect); Bordetella Pertussis Not Detected (Not Detect); Chlamydophila pneumoniae Not Detected (Not Detect); Coronavirus 229E Not Detected (Not Detect); Coronavirus HKU1 Not Detected (Not Detect); Coronavirus NL63 Not Detected (Not Detect); Coronavirus OC43 Not Detected (Not Detect); Human Metapneumovirus Not Detected (Not Detect); Human Rhinovirus/Enterovirus Not Detected (Not Detect); Influenza A Subtype 2009 H1 Not Detected (Not Detect); Influenza B Not Detected (Not Detect); Mycoplasma pneumoniae Not Detected (Not Detect); Parainfluenza Virus 1 Not Detected (Not Detect); Parainfluenza Virus 2 Not Detected (Not Detect); Parainfluenza Virus 3 Not Detected (Not Detect); Parainfluenza Virus 4 Not Detected (Not Detect); Respiratory Syncytial Virus Not Detected (Not Detect); SARS-CoV-2 Not Detected (Not Detect)
[2020-08-07] MEDS ORDERED: methylPREDNISolone 125 MG/2 ML VIAL IVP ONE (16:24)
[2020-08-07] MEDS ORDERED: *HR* HYDROcodone/Acet 5/325 mg TABLET PO PRN (16:28)
[2020-08-07] MEDS ORDERED: Insulin LISPRO 300 UNITS/3 ML VIAL SUBQ SCH (16:30)
[2020-08-07] MEDS: levoFLOXacin 750 MG/150 ML 750 MG/150 ML BAG IVPB SCH (16:39)
[2020-08-07] MEDS ORDERED: *HR* Labetalol 20 MG/4 ML SYRINGE IVP PRN (16:42)
[2020-08-07] MEDS: Ipratropium/Albuterol Neb 3 ML IH SCH ×3 (17:15→23:30)
[2020-08-07 17:32] LABS: ABG Base Excess 1 mEq/L (-2 to 3); ABG HCO3 28 mEq/L (21-27); ABG Oxygen Saturation 94 % (95-98); ABG PCO2 52 mmHg (35-45); ABG PH 7.35 pH Units (7.32-7.45); ABG PO2 76 mmHg (85-104); ABG TCO2 30 mEq/L (20-26)
[2020-08-07] MEDS: Insulin LISPRO 300 UNITS/3 ML VIAL SUBQ SCH (18:49)
[2020-08-07] MEDS: Ringers Solution, Lactated 1,000 ML IVC SCH (18:51)
[2020-08-07] MEDS ORDERED: Insulin DETEMIR 100 UNIT/ML X5UNITS SUBQ SCH (21:00)
[2020-08-07] MEDS: Lactulose Oral Soln 20 GM/30 ML UDC PO SCH (21:36)
[2020-08-07] MEDS: *HR* Heparin 5,000 UNIT/ML VIAL SQ SCH (22:01)
[2020-08-08] MEDS: Insulin LISPRO 300 UNITS/3 ML VIAL SUBQ SCH ×5 (01:12→20:30)
[2020-08-08 02:01] LABS: Basophils % 0.1 %; Hematocrit 52.1 % (37.5-50.1); Immature Granulocytes % 0.5 % (0-4); Lymphocytes # 0.6 K/mcL (0.6-4.6); Lymphocytes % 3.7 %; Mean Corpuscular HGB Conc 32.8 g/dL (31.6-35.5); Mean Corpuscular Hemoglobin 31.1 pg (28.0-33.3); Mean Corpuscular Volume 94.7 fL (83.0-100.0); Mean Platelet Volume 8.8 fL (9.4-12.4); Monocytes # 0.7 K/mcL (0.0-1.3); Monocytes % 4.5 %; Neutrophils # 13.7 K/mcL (1.6-8.9); Platelet Count 292 K/mcL (140-400); Red Cell Distribution Width 12.8 % (11.5-14.5); Segmented Neutrophils % 91.2 %
[2020-08-08 02:02] LABS: Hemoglobin 17.1 g/dL (12.9-16.9)
[2020-08-08 02:17] LABS: BUN/Creatinine Ratio 25 (6-26); Blood Urea Nitrogen 26 mg/dL (8-23); Calcium 8.2 mg/dL (8.6-10.3); Carbon Dioxide 28 mEq/L (23-29); Chloride 105 mEq/L (98-107); Glucose 194 mg/dL (70-105); Magnesium 2.2 mg/dL (1.6-2.6); Osmolality,Calculated 300 (280-300); Phosphorous 2.1 mg/dL (2.7-4.5); Potassium 3.7 mEq/L (3.5-5.1); Sodium 140 mEq/L (136-145); eGFR For African Americans > 60 (> 60); eGFR For Non-African Americans > 60 (> 60)
[2020-08-08] MEDS: Ipratropium/Albuterol Neb 3 ML IH SCH ×5 (03:55→19:19)
[2020-08-08] MEDS: Ringers Solution, Lactated 1,000 ML IVC SCH (04:37)
[2020-08-08] MEDS: *HR* Heparin 5,000 UNIT/ML VIAL SQ SCH ×3 (04:38→20:25)
[2020-08-08] MEDS: MethylPREDNISolone 40 MG/ML VIAL IVP SCH ×2 (10:02→15:35)
[2020-08-08] MEDS: Lactulose Oral Soln 20 GM/30 ML UDC PO SCH ×2 (10:06→20:25)
[2020-08-08] MEDS: levoFLOXacin 750 MG/150 ML 750 MG/150 ML BAG IVPB SCH (10:06)
[2020-08-08] MEDS ORDERED: SUMAtriptan succinate 50 MG TABLET PO PRN (12:27)
[2020-08-08] MEDS: Ibuprofen 800 MG TABLET PO SCH ×2 (15:35→23:56)
[2020-08-08] MEDS: MORPHINE SULFATE IT SCH (16:42)
[2020-08-08] MEDS: Furosemide 20 MG TABLET PO SCH (17:27)
[2020-08-08] MEDS: Insulin DETEMIR 100 UNIT/ML X5UNITS SUBQ SCH (20:29)
[2020-08-09] MEDS: MethylPREDNISolone 40 MG/ML VIAL IVP SCH (00:05)
[2020-08-09] MEDS: Ipratropium/Albuterol Neb 3 ML IH SCH ×7 (00:16→23:42)
[2020-08-09] MEDS: *HR* Heparin 5,000 UNIT/ML VIAL SQ SCH ×3 (05:01→20:46)
[2020-08-09 08:18] LABS: Hematocrit 53.4 % (37.5-50.1); Hemoglobin 17.2 g/dL (12.9-16.9); Mean Corpuscular HGB Conc 32.2 g/dL (31.6-35.5); Mean Corpuscular Hemoglobin 30.7 pg (28.0-33.3); Mean Corpuscular Volume 95.4 fL (83.0-100.0); Mean Platelet Volume 8.5 fL (9.4-12.4); Platelet Count 239 K/mcL (140-400); Red Cell Distribution Width 12.8 % (11.5-14.5); White Blood Count 10.9 K/mcL (4.3-11.1)
[2020-08-09 08:37] LABS: BUN/Creatinine Ratio 26 (6-26); Blood Urea Nitrogen 23 mg/dL (8-23); Calcium 8.5 mg/dL (8.6-10.3); Carbon Dioxide 31 mEq/L (23-29); Chloride 103 mEq/L (98-107); Glucose 213 mg/dL (70-105); Magnesium 2.1 mg/dL (1.6-2.6); Osmolality,Calculated 298 (280-300); Phosphorous 2.3 mg/dL (2.7-4.5); Potassium 4.2 mEq/L (3.5-5.1); Sodium 139 mEq/L (136-145); eGFR For African Americans > 60 (> 60); eGFR For Non-African Americans > 60 (> 60)
[2020-08-09] MEDS: Insulin LISPRO 300 UNITS/3 ML VIAL SUBQ SCH ×6 (09:09→20:45)
[2020-08-09] MEDS: predniSONE 20 MG TABLET PO SCH (09:11)
[2020-08-09] MEDS: Cyanocobalamin (B-12) 1,000 MCG TABLET PO SCH (09:11)
[2020-08-09] MEDS: Ibuprofen 800 MG TABLET PO SCH ×2 (09:12→15:21)
[2020-08-09] MEDS: Furosemide 20 MG TABLET PO SCH ×2 (09:12→17:49)
[2020-08-09] MEDS: Aspirin Enteric Coated 81 MG Tablet PO SCH (09:12)
[2020-08-09] MEDS: Cholecalciferol (D-3) 1,000 UNIT (25MCG) TABLET PO SCH (09:12)
[2020-08-09] MEDS: PARoxetine 30 MG TABLET PO SCH (09:12)
[2020-08-09] MEDS: *HR* Acetylcysteine 20% 600 MG/3 ML ORAL SYRINGE PO SCH (09:13)
[2020-08-09] MEDS: Lactulose Oral Soln 20 GM/30 ML UDC PO SCH ×2 (09:14→20:45)
[2020-08-09] MEDS: levoFLOXacin 750 MG/150 ML 750 MG/150 ML BAG IVPB SCH (09:14)
[2020-08-09] MEDS: Insulin DETEMIR 100 UNIT/ML X5UNITS SUBQ SCH ×2 (09:17→20:46)
[2020-08-09] MEDS: MORPHINE SULFATE IT SCH (12:14)
[2020-08-10] MEDS: Ibuprofen 800 MG TABLET PO SCH ×3 (00:18→17:28)
[2020-08-10] MEDS: Ipratropium/Albuterol Neb 3 ML IH SCH ×2 (03:26→07:17)
[2020-08-10] MEDS: *HR* Heparin 5,000 UNIT/ML VIAL SQ SCH ×3 (05:48→21:40)
[2020-08-10] MEDS ORDERED: Ipratropium/Albuterol Neb 3 ML IH PRN (10:13)
[2020-08-10] MEDS: Aspirin Enteric Coated 81 MG Tablet PO SCH (10:30)
[2020-08-10] MEDS: *HR* Acetylcysteine 20% 600 MG/3 ML ORAL SYRINGE PO SCH (10:30)
[2020-08-10] MEDS: predniSONE 20 MG TABLET PO SCH (10:31)
[2020-08-10] MEDS: Lactulose Oral Soln 20 GM/30 ML UDC PO SCH ×2 (10:31→21:40)
[2020-08-10] MEDS: Insulin LISPRO 300 UNITS/3 ML VIAL SUBQ SCH ×7 (10:31→21:41)
[2020-08-10] MEDS: PARoxetine 30 MG TABLET PO SCH (10:32)
[2020-08-10] MEDS: Furosemide 20 MG TABLET PO SCH ×2 (10:32→17:28)
[2020-08-10] MEDS: Cyanocobalamin (B-12) 1,000 MCG TABLET PO SCH (10:33)
[2020-08-10] MEDS: Insulin DETEMIR 100 UNIT/ML X5UNITS SUBQ SCH ×2 (10:33→21:41)
[2020-08-10] MEDS: Cholecalciferol (D-3) 1,000 UNIT (25MCG) TABLET PO SCH (10:33)
[2020-08-10] MEDS: levoFLOXacin 750 MG/150 ML 750 MG/150 ML BAG IVPB SCH (10:33)
[2020-08-10] MEDS: MORPHINE SULFATE IT SCH (12:05)
[2020-08-11] MEDS: Ibuprofen 800 MG TABLET PO SCH ×3 (00:03→15:38)
[2020-08-11] MEDS: *HR* Heparin 5,000 UNIT/ML VIAL SQ SCH ×2 (07:31→12:50)
[2020-08-11] MEDS: Insulin DETEMIR 100 UNIT/ML X5UNITS SUBQ SCH (08:40)
[2020-08-11] MEDS: Aspirin Enteric Coated 81 MG Tablet PO SCH (08:40)
[2020-08-11] MEDS: Insulin LISPRO 300 UNITS/3 ML VIAL SUBQ SCH ×4 (08:40→12:46)
[2020-08-11] MEDS: Cholecalciferol (D-3) 1,000 UNIT (25MCG) TABLET PO SCH (08:40)
[2020-08-11] MEDS: Lactulose Oral Soln 20 GM/30 ML UDC PO SCH (08:40)
[2020-08-11] MEDS: *HR* Acetylcysteine 20% 600 MG/3 ML ORAL SYRINGE PO SCH (08:40)
[2020-08-11] MEDS: Cyanocobalamin (B-12) 1,000 MCG TABLET PO SCH (08:41)
[2020-08-11] MEDS: Furosemide 20 MG TABLET PO SCH (08:41)
[2020-08-11] MEDS: PARoxetine 30 MG TABLET PO SCH (08:42)
[2020-08-11] MEDS ORDERED: levoFLOXacin 750 MG TABLET PO SCH (09:00)
[2020-08-11] MEDS: MORPHINE SULFATE IT SCH (12:50)
[2020-08-11 15:01] VITALS: BP 169/114
[2020-08-11] MEDS ORDERED: amLODIPine 5 MG TABLET PO ONE (15:23)
== END 2020-08-11 17:41 | disposition home health service (06) ==
LOC: EMEROOARM 12:37 → 3ANU 12:37 → SUATTDRO 16:43 → 3ANU 17:20
PROVIDERS: ADMIT Internal Medicine; ATTEND Internal Medicine

== ENCOUNTER 2020-08-20 12:32 | Observation (INO) ==
[2020-08-20] MEDS ORDERED: 0.9 % Sodium Chloride 1,000 ML IVC ONE (12:48)
[2020-08-20 13:13] LABS: Basophils % 0.2 %; Eosinophils # 0.1 K/mcL (0.0-0.6); Eosinophils % 0.6 %; Hematocrit 52.6 % (37.5-50.1); Hemoglobin 17.6 g/dL (12.9-16.9); Immature Granulocytes % 0.4 % (0-4); Lymphocytes # 0.8 K/mcL (0.6-4.6); Lymphocytes % 8.4 %; Mean Corpuscular HGB Conc 33.5 g/dL (31.6-35.5); Mean Corpuscular Hemoglobin 30.1 pg (28.0-33.3); Mean Corpuscular Volume 89.9 fL (83.0-100.0); Mean Platelet Volume 8.5 fL (9.4-12.4); Monocytes # 0.8 K/mcL (0.0-1.3); Monocytes % 8.4 %; Neutrophils # 7.9 K/mcL (1.6-8.9); Platelet Count 264 K/mcL (140-400); Red Blood Count 5.85 M/mcL (4.19-5.50); Red Cell Distribution Width 12.4 % (11.5-14.5); White Blood Count 9.7 K/mcL (4.3-11.1)
[2020-08-20] MEDS ORDERED: *HR* FentaNYL (PF) 100 MCG/2 ML VIAL IVP ONE ×2 (13:18→14:29)
[2020-08-20 13:31] LABS: BUN/Creatinine Ratio 12 (6-26); Blood Urea Nitrogen 12 mg/dL (8-23); Calcium 9.1 mg/dL (8.6-10.3); Carbon Dioxide 27 mEq/L (23-29); Chloride 105 mEq/L (98-107); Glucose 155 mg/dL (70-105); Osmolality,Calculated 293 (280-300); Potassium 3.6 mEq/L (3.5-5.1); Sodium 140 mEq/L (136-145); Troponin I 0.03 ng/mL (< 0.04); eGFR For African Americans > 60 (> 60); eGFR For Non-African Americans > 60 (> 60)
[2020-08-20] MEDS ORDERED: Isovue-370 500 ML BOTTLE IVP ONE (13:34)
[2020-08-20] MEDS ORDERED: Aztreonam 2,000 MG in 0.9 % Sodium Chloride Mini Bag 100 ML IVPB ONE (14:37)
[2020-08-20] MEDS ORDERED: Naloxone 0.4 MG/ML INJ IVP PRN (14:52)
[2020-08-20] MEDS ORDERED: Ondansetron 4 MG/2 ML VIAL IVP PRN (14:52)
[2020-08-20 14:55] LABS: Adenovirus Not Detected (Not Detect); Bordetella Pertussis Not Detected (Not Detect); Chlamydophila pneumoniae Not Detected (Not Detect); Coronavirus 229E Not Detected (Not Detect); Coronavirus HKU1 Not Detected (Not Detect); Coronavirus NL63 Not Detected (Not Detect); Coronavirus OC43 Not Detected (Not Detect); Human Metapneumovirus Not Detected (Not Detect); Human Rhinovirus/Enterovirus Not Detected (Not Detect); Influenza A Subtype 2009 H1 Not Detected (Not Detect); Influenza B Not Detected (Not Detect); Mycoplasma pneumoniae Not Detected (Not Detect); Parainfluenza Virus 1 Not Detected (Not Detect); Parainfluenza Virus 2 Not Detected (Not Detect); Parainfluenza Virus 3 Not Detected (Not Detect); Parainfluenza Virus 4 Not Detected (Not Detect); Respiratory Syncytial Virus Not Detected (Not Detect); SARS-CoV-2 Not Detected (Not Detect)
[2020-08-20] MEDS ORDERED: Ipratropium/Albuterol Neb 3 ML IH PRN (14:56)
[2020-08-20] MEDS ORDERED: *HR* Dextrose 50 % in Water (Vial) 50 ML VIAL IVP PRN (14:57)
[2020-08-20] MEDS ORDERED: Dextrose Gel 15 GM/37.5 ML TUBE PO PRN ×2 (14:57)
[2020-08-20] MEDS ORDERED: D5% in Water 1,000 ML IVC PRN (14:57)
[2020-08-20] MEDS ORDERED: Vancomycin 1,500 MG/265 ML IV.SOLN IVPB ONE (15:00)
[2020-08-20] MEDS ORDERED: Morphine Sulfate 2 MG/ML SYRINGE IVP ONE (15:05)
[2020-08-20 15:55] LABS: C-Reactive Protein 46 mg/L (Less than 10)
[2020-08-20] MEDS ORDERED: SUMAtriptan succinate 50 MG TABLET PO PRN (16:05)
[2020-08-20 16:13] LABS: Ferritin 160 ng/mL (20-250)
[2020-08-20] MEDS: Furosemide 20 MG TABLET PO SCH (17:17)
[2020-08-20] MEDS: Insulin LISPRO 300 UNITS/3 ML VIAL SUBQ SCH (17:18)
[2020-08-20] MEDS ORDERED: *HR* HYDROmorphone (PF) 1 MG/ML SYRINGE IVP ONE (18:41)
[2020-08-20] MEDS ORDERED: PHENOL TP PRN (18:46)
[2020-08-20] MEDS ORDERED: CAMPHOR TP PRN (18:46)
[2020-08-20] MEDS ORDERED: Methyl Salicylate/Menthol 85 APPL/85 GM TUBE TP PRN (18:56)
[2020-08-20] MEDS: Insulin DETEMIR 100 UNIT/ML X5UNITS SUBQ SCH (19:38)
[2020-08-20] MEDS: *HR* Heparin 5,000 UNIT/ML VIAL SQ SCH (21:40)
[2020-08-20 22:04] LABS: Bilirubin,Urine Negative (Negative); Blood,Urine Negative (Negative); Clarity,Urine Clear (Clear); Color,Urine Light-Yellow (Yellow); Glucose,Urine (UA) Normal (Normal); Ketones,Urine 10 mg/dL (Negative); Leukocyte Esterase,Urine Negative (Negative); Nitrite,Urine Negative (Negative); PH,Urine 7.5 pH Units (5.0-8.0); Protein,Urine Negative (Neg-Trace); Specific Gravity,Urine 1.016 (1.010-1.025); Urobilinogen,Urine Normal (Normal)
[2020-08-21 02:32] LABS: Basophils % 0.4 %; Eosinophils # 0.2 K/mcL (0.0-0.6); Eosinophils % 1.6 %; Hematocrit 48.9 % (37.5-50.1); Hemoglobin 16.6 g/dL (12.9-16.9); Immature Granulocytes % 0.3 % (0-4); Lymphocytes # 1.5 K/mcL (0.6-4.6); Lymphocytes % 14.4 %; Mean Corpuscular HGB Conc 33.9 g/dL (31.6-35.5); Mean Corpuscular Hemoglobin 30.2 pg (28.0-33.3); Mean Corpuscular Volume 88.9 fL (83.0-100.0); Mean Platelet Volume 8.6 fL (9.4-12.4); Monocytes # 1.4 K/mcL (0.0-1.3); Monocytes % 12.8 %; Neutrophils # 7.5 K/mcL (1.6-8.9); Platelet Count 261 K/mcL (140-400); Red Cell Distribution Width 12.6 % (11.5-14.5); Segmented Neutrophils % 70.5 %; White Blood Count 10.7 K/mcL (4.3-11.1)
[2020-08-21 02:40] LABS: INR 1.3; Prothrombin Time 14.7 Seconds (9.4-12.1)
[2020-08-21 02:42] LABS: Activated Partial Thrombo Time 32.2 Seconds (26.0-36.0)
[2020-08-21 02:51] LABS: BUN/Creatinine Ratio 15 (6-26); Blood Urea Nitrogen 14 mg/dL (8-23); Calcium 8.4 mg/dL (8.6-10.3); Carbon Dioxide 26 mEq/L (23-29); Chloride 109 mEq/L (98-107); Glucose 161 mg/dL (70-105); Magnesium 1.7 mg/dL (1.6-2.6); Osmolality,Calculated 296 (280-300); Phosphorous 2.2 mg/dL (2.7-4.5); Potassium 3.4 mEq/L (3.5-5.1); Sodium 141 mEq/L (136-145); eGFR For African Americans > 60 (> 60); eGFR For Non-African Americans > 60 (> 60)
[2020-08-21] MEDS: *HR* Heparin 5,000 UNIT/ML VIAL SQ SCH ×3 (04:13→20:26)
[2020-08-21] MEDS ORDERED: Vancomycin 1,500 MG/265 ML IV.SOLN IVPB SCH (05:00)
[2020-08-21] MEDS ORDERED: Melatonin 3 MG TABLET PO PRN (07:39)
[2020-08-21] MEDS ORDERED: Ibuprofen 800 MG TABLET PO SCH (08:00)
[2020-08-21] MEDS: Calcium Gluconate 1gm/50mL 1 GM/50 ML BAG IVPB SCH ×2 (08:23→09:56)
[2020-08-21] MEDS: Cholecalciferol (D-3) 1,000 UNIT (25MCG) TABLET PO SCH (08:23)
[2020-08-21] MEDS: Cyanocobalamin (B-12) 1,000 MCG TABLET PO SCH (08:24)
[2020-08-21] MEDS: Furosemide 20 MG TABLET PO SCH ×2 (08:24→17:38)
[2020-08-21] MEDS: PARoxetine 30 MG TABLET PO SCH (08:24)
[2020-08-21] MEDS: Aspirin Enteric Coated 81 MG Tablet PO SCH (08:24)
[2020-08-21] MEDS: Multivit/Ca/Min/Fe/FA 1 TAB TABLET PO SCH (08:24)
[2020-08-21] MEDS: Celecoxib 200 MG CAPSULE PO SCH (08:40)
[2020-08-21] MEDS: Morphine Sulfate/Pf [Morphine Intrathecdal Pump] IT SCH (08:43)
[2020-08-21] MEDS: Insulin LISPRO 300 UNITS/3 ML VIAL SUBQ SCH ×3 (08:43→17:38)
[2020-08-21] MEDS ORDERED: levoFLOXacin 750 MG/150 ML 750 MG/150 ML BAG IVPB SCH (09:00)
[2020-08-21] MEDS ORDERED: NON-FORMULARY MEDICATION 1 EACH EACH (Omega-3/Dha/Epa/Fish Oil [Cvs Fish Oil 1,000 Mg Soft PO SCH (09:00)
[2020-08-21] MEDS ORDERED: Dextroamphetamine/Amphetamine [Adderall 10 Mg Tablet] PO SCH ×3 (09:00→18:00)
[2020-08-21 09:37] LABS: Estimated Average Glucose 197 mg/dl; Hemoglobin A1C 8.5 %
[2020-08-21] MEDS: Budesonide/Formoterol 160/4.5 1 PUFF INH IH SCH ×2 (11:54→20:01)
[2020-08-21] MEDS: *HR* Acetylcysteine 20% 600 MG/3 ML ORAL SYRINGE PO SCH (12:39)
[2020-08-21] MEDS: Pregabalin 75 MG CAPSULE PO SCH ×2 (12:43→20:25)
[2020-08-21] MEDS ORDERED: Gadolinium Contrast Agent (WT Based) IV PRN (14:07)
[2020-08-21] MEDS: Insulin DETEMIR 100 UNIT/ML X5UNITS SUBQ SCH (20:26)
[2020-08-21] MEDS: levETIRAcetam 250 MG TABLET PO SCH (21:12)
[2020-08-22] MEDS: levETIRAcetam 250 MG TABLET PO SCH (05:41)
[2020-08-22] MEDS: *HR* Heparin 5,000 UNIT/ML VIAL SQ SCH (05:43)
[2020-08-22 06:13] LABS: Hematocrit 51.1 % (37.5-50.1); Hemoglobin 16.4 g/dL (12.9-16.9); Mean Corpuscular HGB Conc 32.1 g/dL (31.6-35.5); Mean Corpuscular Hemoglobin 30.5 pg (28.0-33.3); Mean Platelet Volume 8.6 fL (9.4-12.4); Platelet Count 243 K/mcL (140-400); Red Blood Count 5.38 M/mcL (4.19-5.50); Red Cell Distribution Width 12.7 % (11.5-14.5); White Blood Count 8.2 K/mcL (4.3-11.1)
[2020-08-22 06:18] LABS: BUN/Creatinine Ratio 17 (6-26); Blood Urea Nitrogen 20 mg/dL (8-23); Calcium 8.7 mg/dL (8.6-10.3); Carbon Dioxide 28 mEq/L (23-29); Chloride 103 mEq/L (98-107); Glucose 154 mg/dL (70-105); Magnesium 1.9 mg/dL (1.6-2.6); Osmolality,Calculated 290 (280-300); Phosphorous 4.3 mg/dL (2.7-4.5); Sodium 137 mEq/L (136-145); eGFR For African Americans > 60 (> 60); eGFR For Non-African Americans > 60 (> 60)
[2020-08-22 06:43] VITALS: BP 111/74
[2020-08-22] MEDS: Budesonide/Formoterol 160/4.5 1 PUFF INH IH SCH (07:34)
[2020-08-22] MEDS: Aspirin Enteric Coated 81 MG Tablet PO SCH (08:35)
[2020-08-22] MEDS: PARoxetine 30 MG TABLET PO SCH (08:36)
[2020-08-22] MEDS: Pregabalin 75 MG CAPSULE PO SCH (08:36)
[2020-08-22] MEDS: Cholecalciferol (D-3) 1,000 UNIT (25MCG) TABLET PO SCH (08:36)
[2020-08-22] MEDS: Celecoxib 200 MG CAPSULE PO SCH (08:36)
[2020-08-22] MEDS: Multivit/Ca/Min/Fe/FA 1 TAB TABLET PO SCH (08:36)
[2020-08-22] MEDS: *HR* Acetylcysteine 20% 600 MG/3 ML ORAL SYRINGE PO SCH (08:36)
[2020-08-22] MEDS: Furosemide 20 MG TABLET PO SCH (08:36)
[2020-08-22] MEDS: Cyanocobalamin (B-12) 1,000 MCG TABLET PO SCH (08:36)
[2020-08-22] MEDS: Insulin LISPRO 300 UNITS/3 ML VIAL SUBQ SCH (08:37)
[2020-08-22] MEDS: Morphine Sulfate/Pf [Morphine Intrathecdal Pump] IT SCH (09:05)
[2020-08-22 13:14] LABS: Folate 7.3 ng/mL (3.0-16.0)
== END 2020-08-22 09:58 | disposition home or self-care (01) ==
LOC: EMEROOARM 12:32 → 2ANU 12:32 → SUATTDRO 15:06 → 2ANU 15:39
PROVIDERS: ADMIT Internal Medicine; ATTEND Internal Medicine

== ENCOUNTER 2020-10-30 14:29 | Inpatient (IN) ==
[2020-10-30] MEDS ORDERED: 0.9 % Sodium Chloride 1,000 ML IVC ONE ×2 (14:43→17:22)
[2020-10-30 15:20] LABS: Basophils % 0.3 %; Eosinophils # 0.4 K/mcL (0.0-0.6); Eosinophils % 2.6 %; Hematocrit 45.8 % (37.5-50.1); Hemoglobin 15.2 g/dL (12.9-16.9); Immature Granulocytes % 0.4 % (0-4); Lymphocytes # 1.4 K/mcL (0.6-4.6); Mean Corpuscular HGB Conc 33.2 g/dL (31.6-35.5); Mean Corpuscular Volume 90.5 fL (83.0-100.0); Mean Platelet Volume 8.7 fL (9.4-12.4); Monocytes # 0.8 K/mcL (0.0-1.3); Monocytes % 4.9 %; Neutrophils # 12.6 K/mcL (1.6-8.9); Platelet Count 243 K/mcL (140-400); Red Blood Count 5.06 M/mcL (4.19-5.50); Red Cell Distribution Width 13.2 % (11.5-14.5); Segmented Neutrophils % 82.8 %; White Blood Count 15.3 K/mcL (4.3-11.1)
[2020-10-30 15:54] LABS: Alanine Aminotransferase 11 Units/L (7-52); Albumin 4.1 g/dL (3.5-5.7); Albumin/Globulin Ratio 1.8 (1.1-2.2); Alkaline Phosphatase 71 Units/L (34-104); Aspartate Amino Transferase 18 Units/L (13-39); BUN/Creatinine Ratio 16 (6-26); Blood Urea Nitrogen 40 mg/dL (8-23); Calcium 9.1 mg/dL (8.6-10.3); Carbon Dioxide 27 mEq/L (23-29); Chloride 93 mEq/L (98-107); Globulin 2.3 g/dL (2.4-3.5); Glucose 205 mg/dL (70-105); Osmolality,Calculated 288 (280-300); Potassium 4.4 mEq/L (3.5-5.1); Sodium 131 mEq/L (136-145); Total Protein 6.4 g/dL (6.4-8.9); Troponin I < 0.03 ng/mL (< 0.04); eGFR For African Americans 31 (> 60); eGFR For Non-African Americans 26 (> 60)
[2020-10-30 15:57] LABS: Thyroid Stimulating Hormone 2.225 mcIU/mL (0.340-5.600)
[2020-10-30] MEDS ORDERED: Doxycycline 100 MG CAPSULE PO STA (16:07)
[2020-10-30 16:56] LABS: Bilirubin,Urine Negative (Negative); Blood,Urine Negative (Negative); Clarity,Urine Clear (Clear); Color,Urine Light-Yellow (Yellow); Glucose,Urine (UA) Normal (Normal); Ketones,Urine Negative (Negative); Leukocyte Esterase,Urine Negative (Negative); Nitrite,Urine Negative (Negative); PH,Urine 5.5 pH Units (5.0-8.0); Protein,Urine Trace mg/dL (Neg-Trace); Specific Gravity,Urine 1.018 (1.010-1.025); Urobilinogen,Urine Normal (Normal)
[2020-10-30] MEDS ORDERED: levoFLOXacin 750 MG/150 ML 750 MG/150 ML BAG IVPB SCH (18:00)
[2020-10-30] MEDS ORDERED: Naloxone 0.4 MG/ML INJ IVP PRN (18:05)
[2020-10-30] MEDS ORDERED: Ondansetron 4 MG/2 ML VIAL IVP PRN (18:05)
[2020-10-30] MEDS: Ringers Solution, Lactated 1,000 ML IVC SCH (19:13)
[2020-10-30] MEDS: *HR* Heparin 5,000 UNIT/ML VIAL SQ SCH (20:28)
[2020-10-30] MEDS: Acetaminophen 325 MG TABLET PO PRN (20:28)
[2020-10-31 02:36] LABS: Hematocrit 42.7 % (37.5-50.1); Hemoglobin 14.7 g/dL (12.9-16.9); Mean Corpuscular HGB Conc 34.4 g/dL (31.6-35.5); Mean Corpuscular Volume 90.1 fL (83.0-100.0); Platelet Count 223 K/mcL (140-400); Red Blood Count 4.74 M/mcL (4.19-5.50); Red Cell Distribution Width 13.1 % (11.5-14.5); White Blood Count 11.2 K/mcL (4.3-11.1)
[2020-10-31 02:55] LABS: Calcium 8.7 mg/dL (8.6-10.3); Magnesium 1.5 mg/dL (1.6-2.6); Potassium 4.5 mEq/L (3.5-5.1)
[2020-10-31] MEDS: Ringers Solution, Lactated 1,000 ML IVC SCH (04:28)
[2020-10-31] MEDS: *HR* Heparin 5,000 UNIT/ML VIAL SQ SCH ×3 (05:05→20:45)
[2020-10-31] MEDS: levETIRAcetam 250 MG TABLET PO SCH ×2 (05:05→15:55)
[2020-10-31] MEDS: Aspirin Enteric Coated 81 MG Tablet PO SCH (09:14)
[2020-10-31] MEDS: PARoxetine 20 MG TABLET PO SCH (09:14)
[2020-10-31] MEDS ORDERED: SUMAtriptan succinate 50 MG TABLET PO PRN (09:45)
[2020-10-31] MEDS: SUMAtriptan succinate 50 MG TABLET PO PRN (10:18)
[2020-10-31] MEDS: Tiotropium 10 INH DOSE IH SCH (10:20)
[2020-10-31] MEDS: DEXTROAMPHETAMINE PO SCH (11:00)
[2020-10-31] MEDS: AMPHETAMINE PO SCH (11:00)
[2020-10-31] MEDS: 0.9 % Sodium Chloride 1,000 ML IVC SCH ×2 (11:55→20:46)
[2020-10-31] MEDS ORDERED: Ondansetron 4 MG/2 ML VIAL ONE (13:20)
[2020-10-31] MEDS ORDERED: *HR* Propofol 200 MG/20 ML VIAL IVP ONE (13:20)
[2020-10-31] MEDS ORDERED: Lidocaine -MPF 2% 2 ML VIAL ONE (13:20)
[2020-10-31] MEDS ORDERED: *HR* FentaNYL (PF) 100 MCG/2 ML VIAL ONE (13:20)
[2020-10-31] MEDS ORDERED: *HR* HYDROcodone/Acet 5/325 mg TABLET PO PRN (13:59)
[2020-10-31] MEDS ORDERED: CefOXitin 1,000 MG VIAL ONE (15:00)
[2020-11-01] MEDS: SUMAtriptan succinate 50 MG TABLET PO PRN (02:54)
[2020-11-01] MEDS: *HR* Heparin 5,000 UNIT/ML VIAL SQ SCH (06:28)
[2020-11-01] MEDS: levETIRAcetam 250 MG TABLET PO SCH (06:28)
[2020-11-01 06:57] LABS: VBG HCO3 29 mEq/L (21-27); VBG PCO2 52 mmHg (41-51); VBG PH 7.35 pH Units (7.32-7.42); VBG PO2 42 mmHg (25-50)
[2020-11-01 06:57] LABS: Hematocrit 47.6 % (37.5-50.1); Hemoglobin 15.6 g/dL (12.9-16.9); Mean Corpuscular HGB Conc 32.8 g/dL (31.6-35.5); Mean Corpuscular Hemoglobin 29.9 pg (28.0-33.3); Mean Corpuscular Volume 91.4 fL (83.0-100.0); Mean Platelet Volume 8.7 fL (9.4-12.4); Platelet Count 207 K/mcL (140-400); Red Blood Count 5.21 M/mcL (4.19-5.50); Red Cell Distribution Width 13.5 % (11.5-14.5); White Blood Count 9.9 K/mcL (4.3-11.1)
[2020-11-01 07:26] LABS: BUN/Creatinine Ratio 16 (6-26); Blood Urea Nitrogen 16 mg/dL (8-23); Calcium 9.3 mg/dL (8.6-10.3); Carbon Dioxide 27 mEq/L (23-29); Chloride 104 mEq/L (98-107); Glucose 150 mg/dL (70-105); Magnesium 1.8 mg/dL (1.6-2.6); Osmolality,Calculated 292 (280-300); Potassium 3.4 mEq/L (3.5-5.1); Sodium 139 mEq/L (136-145); eGFR For African Americans > 60 (> 60); eGFR For Non-African Americans > 60 (> 60)
[2020-11-01] MEDS: Tiotropium 10 INH DOSE IH SCH (08:32)
[2020-11-01] MEDS: Aspirin Enteric Coated 81 MG Tablet PO SCH ×2 (09:03→09:08)
[2020-11-01] MEDS: PARoxetine 20 MG TABLET PO SCH (09:04)
[2020-11-01] MEDS: DEXTROAMPHETAMINE PO SCH (09:08)
[2020-11-01] MEDS: AMPHETAMINE PO SCH (09:08)
[2020-11-01] MEDS: Acetaminophen 325 MG TABLET PO PRN (09:25)
[2020-11-01] MEDS ORDERED: levoFLOXacin 750 MG/150 ML 750 MG/150 ML BAG IVPB ONE (09:29)
[2020-11-01 10:39] VITALS: BP 90/59
== END 2020-11-01 11:29 | disposition home or self-care (01) | DRG 871 ==
LOC: EMEROOARM 14:29 → 2ANU 14:29 → SUATTDRO 18:55
PROVIDERS: ADMIT Internal Medicine; ATTEND Internal Medicine